=== PATIENT | male | born 1940 | race Caucasian/White ===

== ENCOUNTER 2023-02-12 10:20 | Outpatient (REF) | payer MEDICARE, SELFPAY ==
[2023-02-12 14:01] LABS: MANUAL DIFF FLAG NO
[2023-02-12 14:13] LABS: Basophils Percent Auto 0.7 % (0-2); Eosinophils Absolute Auto 0.1 X10*3/uL (0.0-0.4); Eosinophils Percent Auto 1.9 % (0-4); Hematocrit 50.3 % (42.0-52.0); Hemoglobin 16.9 g/dl (14.0-18.0); Imm Gran Abs Auto 0.01 X10*3/uL (0.00-0.03); Imm Gran Pct Auto 0.2 % (0.0-0.4); Lymphocytes Absolute Auto 1.4 X10*3/uL (1.2-4.9); Lymphocytes Percent Auto 23.9 % (20-40); Mean Corpuscular HGB Conc 33.6 g/dl (31.0-36.0); Mean Corpuscular Hemoglobin 31.5 pg (27.0-33.0); Mean Corpuscular Volume 93.7 fL (80.0-98.0); Mean Platelet Volume 10.2 fL (9.4-12.4); Monocytes Absolute Auto 0.6 X10*3/uL (0.1-1.2); Monocytes Percent Auto 9.7 % (2-11); Neutrophils Absolute Auto 3.6 x10*3/uL (2.0-8.3); Neutrophils Percent Auto 63.6 % (45-73); Platelet Count 158 X10*3/uL (160-400); Red Blood Count 5.37 X10*6/uL (4.60-5.80); White Blood Count 5.7 X10*3/uL (4.8-10.8)
[2023-02-12 14:20] LABS: Appearance Urine Clear; Color Urine Yellow; Glucose Urine UA Negative (Negative); Leukocyte Esterase Urine Negative (Negative); Nitrite Urine Negative (Negative); PH 5.5 (5.0-9.0); Specific Gravity - Urine 1.025 (1.005-1.025); Urine Blood Negative (Negative); Urine Ketones Negative (Negative); Urine Protein Negative (Neg-Trace)
[2023-02-12 14:32] LABS: Alanine Aminotransferase 12 U/L (0-40); Albumin Level 3.6 g/dL (3.5-5.0); Alkaline Phosphatase 88 U/L (39-117); Anion Gap 11 (12-20); Aspartate Amino Transferase 19 U/L (5-37); Blood Urea Nitrogen 21 mg/dL (9-16); Calcium 9.2 mg/dL (8.4-10.2); Carbon Dioxide 24 mmol/L (22-29); Chloride 108 mmol/L (96-108); Cholesterol 148 mg/dL; Estimated Glomerular Filt Rate > 60; Glucose Fasting 92 mg/dL (60-99); HDL Cholesterol 40 mg/dL; LDL Cholesterol Calculated 96 mg/dl; Potassium 4.2 mmol/L (3.3-5.1); Sodium 139 mmol/L (135-145); Total Protein 6.3 g/dL (6.5-8.0); Triglycerides 64 mg/dL
[2023-02-12 14:37] LABS: TSH reflex Free T4 0.93 uIU/mL (0.32-4.0)
[2023-02-12 14:57] LABS: Prostate Specific Antigen Scr < 0.10 ng/mL (<0.05-4.0)
[2023-02-12 15:06] LABS: Creatinine Urine 116.97 mg/dL; Microalbum/Creatinine Ratio Ur 7.6 ug/mg cr
== END 2023-02-12 10:21 | disposition home or self-care (01) ==
LOC: HO.WFDLDS 10:20
PROVIDERS: Visit Provider Family Medicine
DX: Z00.00 Encounter for general adult medical examination without abnormal findings (principal); I10 Essential (primary) hypertension; Z12.5 Encounter for screening for malignant neoplasm of prostate
CPT/HCPCS: 36415; 80053; 80061; 81003; 82043; 84153; 84443; 85025

== ENCOUNTER 2023-04-01 10:51 | Outpatient (AMB) | payer MEDICARE, SELFPAY ==
--- NOTE | 2023-04-01 11:00 | A.OFFPC_ITS ---
Vital Signs 04/01/23 11:01 Height 6 ft Weight 186 lb BMI 25.2 BP 120/72 Blood Pressure Location Lt brachial Position Sitting Pulse 58 Pulse Source Pulse Oximeter Pulse Oximetry (%) 97 Oxygen Delivery Method Room Air Intake Visit Reasons: f/u irreg rhythm stable, labs, health maint Intake Note: Patient is here for follow up on irregular rythm, labs, and health maintenance. Allergies No Known Allergies Allergy (Verified 04/01/23 11:02) Tobacco use date assessed: 04/01/23 Fall risk assessment: No Falls in past year Last assessed Fall Risk: 04/01/23 Dental Screening Dental Screen Date: 04/01/23 Did you have a dental visit in the last 12 months?: No Did you have a dental problem in the last 6 months where you did not have access to dental care?: No Was dental information given to patient?: No HPI f/u irreg rhythm stable, labs, health maint HPI Details 83 y/o male presents to f/u irregular rhythm, labs and health maintenance. He denies any dizzines/weakness/chest pain. He denies any significant changes. Labs were drawn 02/12/23. Reviewed labs with pt. Triglycerides 64. TC 148. LDL 96. HDL 40. Pt reports he plays basketball and reports he feels changes to his knees. [facility] Medical History (Updated 04/01/23 @ 11:33 by Js Spencer) Prostate cancer Surgical History (Updated 04/01/23 @ 11:05 by Giselle Holt CMA) History of back surgery Social History (Updated 11/06/22 @ 12:08 by Giselle Holt CMA) Household Members: Significant Other Housing: House Are you a primary ostomy care nurse to a significant other at home: No Do you presently have visiting nurse or other home services: No 75 years or older and lives alone: No Alcohol intake: never Patient Tobacco Use Status: Former Tobacco user Years Smoked: quit smoking in 1971 e-Cigarette/Vaping Use: Never Used service: Yes Current occupational status: employed Current occupation: [employer]. Cognitive needs: No Hearing needs: No Vision needs: No Review of Systems Const Denies chills, Denies fatigue, Denies fever(s), Denies headache(s) and Denies weakness ENT Denies dizziness and Denies headache(s) Card Denies chest pain, Denies lightheadedness, Denies dyspnea and Denies other (Palpitations) Resp Denies cough, Denies dyspnea, Denies wheezing and Denies other ( shortness of breath) Musc Denies numbness and Denies tingling Neuro Denies dizziness, Denies headache(s), Denies numbness, Denies tingling, Denies paresthesias and Denies weakness Psych Denies anxiety and Denies depression Endo Denies fatigue Aller/Immun Denies wheezing Physical exam (Primary Care) Vital Signs: Last Vital Signs Pulse 58 04/01/23 11:01 BP 120/72 04/01/23 11:01 Pulse Ox 97 04/01/23 11:01 Oxygen Delivery Method Room Air 04/01/23 11:01 BMI result Body Mass Index 25.2 Tobacco/Smoking Status: Tobacco use Status Tobacco use date assessed 04/01/23 04/01/23 11:05 Patient Tobacco Use Status Former Tobacco user 04/01/23 11:05 e-Cigarette/Vaping Use Never Used 04/01/23 11:05 Const General: no acute distress and well developed Nutritional Appearance: well nourished Orientation/consciousness: patient oriented x3 HENMT Head: Yes normocephalic and Yes atraumatic Eyes General: appearance normal, both eyes and all related structures Pupils: Equal, round and reactive pupils present EOM: EOMs intact bilaterally Resp Effort & Inspection: normal respiratory effort Auscultation: clear to auscultation bilaterally Cardio Rate: regular rate Rhythm: abnormal rhythm (irregular rhythm due to PACs) Heart sounds: S1 normal heart sound present, S2 normal heart sound present, no gallops, no murmurs and no rubs Skin Other: Rash on bilateral thighs and legs with mild erythema and scale Neuro General: patient oriented x3 and gait normal Cranial nerves: Yes Equal, round and reactive pupils present Psych Affect: normal affect Assessment and Plan Assessment & Plan (1) Irregular heart rhythm: Code(s): I49.9 - Cardiac arrhythmia, unspecified Plan: Patient has frequent PACs generating an irregular rhythm but has normal rate and has been stable for many years. Recent EKG did not show atrial fibrillation Stable Will continue to follow (2) Knee pain: Code(s): M25.569 - Pain in unspecified knee Plan: Bilateral knee pain which is likely osteoarthritis He has Voltaren gel at home and will use this. He can also use Tylenol. Uses naproxen regularly present but would like to wean off this and naproxen may be affecting his platelet count-see below (3) Contact dermatitis: Code(s): L25.9 - Unspecified contact dermatitis, unspecified cause Plan: Trial steroid ointment He will let me know if worsening or not improving (4) Thrombocytopenia: Code(s): D69.6 - Thrombocytopenia, unspecified Plan: Very mild thrombocytopenia. He has been taking regular NSAIDs for some low back pain. He will try to use this less frequently Will recheck platelets with his next blood draw Coding Level of Care Code Est Pt Level 4 (80084) Diagnoses Irregular heart rhythm I49.9 Knee pain M25.569 Contact dermatitis L25.9 Thrombocytopenia D69.6
[2023-04-01 11:01] VITALS: BP 120/72; PULSE 58; O2SAT 97; BMI 25.2
== END 2023-04-01 11:34 | disposition home or self-care (01) ==
PROVIDERS: PCP Family Medicine; Visit Provider Family Medicine
DX: I49.9 Cardiac arrhythmia, unspecified (principal); M25.569 Pain in unspecified knee; L25.9 Unspecified contact dermatitis, unspecified cause; D69.6 Thrombocytopenia, unspecified
CPT/HCPCS: 99214

== ENCOUNTER 2023-07-12 10:06 | Outpatient (REF) | payer MEDICARE, SELFPAY ==
[2023-07-12 11:21] LABS: MANUAL DIFF FLAG NO
[2023-07-12 11:33] LABS: Basophils Percent Auto 0.5 % (0-2); Eosinophils Absolute Auto 0.1 X10*3/uL (0.0-0.4); Eosinophils Percent Auto 0.8 % (0-4); Hematocrit 48.7 % (42.0-52.0); Hemoglobin 16.1 g/dl (14.0-18.0); Imm Gran Abs Auto 0.01 X10*3/uL (0.00-0.03); Imm Gran Pct Auto 0.1 % (0.0-0.4); Lymphocytes Absolute Auto 1.2 X10*3/uL (1.2-4.9); Mean Corpuscular HGB Conc 33.1 g/dl (31.0-36.0); Mean Corpuscular Hemoglobin 31.3 pg (27.0-33.0); Mean Corpuscular Volume 94.6 fL (80.0-98.0); Mean Platelet Volume 9.8 fL (9.4-12.4); Monocytes Absolute Auto 0.5 X10*3/uL (0.1-1.2); Monocytes Percent Auto 6.9 % (2-11); Neutrophils Absolute Auto 5.8 x10*3/uL (2.0-8.3); Neutrophils Percent Auto 75.7 % (45-73); Platelet Count 154 X10*3/uL (160-400); Red Blood Count 5.15 X10*6/uL (4.60-5.80); Red Cell Distribution Width 13.2 % (11.0-16.0); White Blood Count 7.6 X10*3/uL (4.8-10.8)
[2023-07-12 12:02] LABS: Alanine Aminotransferase 13 U/L (0-40); Albumin Level 3.5 g/dL (3.5-5.0); Alkaline Phosphatase 81 U/L (39-117); Anion Gap 9 (12-20); Aspartate Amino Transferase 18 U/L (5-37); Bilirubin Total 1.4 mg/dL (0.0-1.0); Blood Urea Nitrogen 18 mg/dL (9-16); Calcium 8.5 mg/dL (8.4-10.2); Carbon Dioxide 27 mmol/L (22-29); Chloride 107 mmol/L (96-108); Estimated Glomerular Filt Rate > 60; Glucose Random 89 mg/dL (60-115); Potassium 4.1 mmol/L (3.3-5.1); Sodium 139 mmol/L (135-145); Total Protein 6.2 g/dL (6.5-8.0)
== END 2023-07-12 10:07 | disposition home or self-care (01) ==
LOC: HO.WFDLDS 10:06
PROVIDERS: Visit Provider Family Medicine
DX: Z00.00 Encounter for general adult medical examination without abnormal findings (principal); D69.6 Thrombocytopenia, unspecified; I49.9 Cardiac arrhythmia, unspecified
CPT/HCPCS: 36415; 80053; 85025

== ENCOUNTER 2023-07-20 10:48 | Outpatient (AMB) | payer MEDICARE, SELFPAY ==
[2023-07-20 11:02] VITALS: BP 120/72; PULSE 74; RESP 13; O2SAT 96; BMI 24.8
--- NOTE | 2023-07-20 11:02 | MHC.PC.OV ---
Vital Signs 07/20/23 11:02 Height 6 ft Weight 183 lb 2 oz BMI 24.8 BP 120/72 Blood Pressure Location Lt brachial Position Sitting Respiration 13 Pulse 74 Pulse Source Pulse Oximeter Pulse Oximetry (%) 96 Oxygen Delivery Method Room Air Intake Visit Reasons: f/u irregular rhythm and thrombocytopenia Intake Note: Patient is here for a follow up for irregular rhythm and thrombocytopenia. Patient is accompanied by spouse who shares concern for patients recent weightloss. Manager Procurement Required: No Accompanied by: Spouse Allergies No Known Allergies Allergy (Verified 07/20/23 11:09) Tobacco use date assessed: 04/01/23 HPI f/u irregular rhythm and thrombocytopenia HPI Details 83 y/o male presents to f/u irregular rhythm and mild thrombocytopenia. Labs were drawn 07/12/23. Reviewed labs with pt. Ongoing mild thrombocytopenia - stable. Protein mildly low. They note he has been coughing - pt states he occasionally feels a tickle in his throat. [facility] Medical History (Updated 07/20/23 @ 11:39 by Js Spencer) Prostate cancer Surgical History (Updated 04/01/23 @ 11:05 by Giselle Holt [facility]) History of back surgery Social History (Updated 11/06/22 @ 12:08 by Giselle Holt CMA) Household Members: Significant Other Housing: House Are you a primary associate director career services to a significant other at home: No Do you presently have visiting nurse or other home services: No Alcohol intake: never Patient Tobacco Use Status: Former Tobacco user Years Smoked: quit smoking in 1971 e-Cigarette/Vaping Use: Never Used service: Yes Current occupational status: employed Current occupation: [employer]. Cognitive needs: No Hearing needs: No Vision needs: No Review of Systems Const Denies chills, Denies fatigue, Denies fever(s), Denies headache(s) and Denies weakness ENT Denies dizziness and Denies headache(s) Card Denies chest pain, Denies lightheadedness, Denies dyspnea and Denies other (Palpitations) Resp Reports cough, Denies dyspnea, Denies wheezing and Denies other ( shortness of breath) Musc Denies numbness and Denies tingling Neuro Denies dizziness, Denies headache(s), Denies numbness, Denies tingling, Denies paresthesias and Denies weakness Psych Denies anxiety and Denies depression Endo Denies fatigue Aller/Immun Denies wheezing Physical exam (Primary Care) Vital Signs: Last Vital Signs Pulse 74 07/20/23 11:02 Resp 13 07/20/23 11:02 BP 120/72 07/20/23 11:02 Pulse Ox 96 07/20/23 11:02 Oxygen Delivery Method Room Air 07/20/23 11:02 BMI result Body Mass Index 24.8 Tobacco/Smoking Status: Tobacco use Status Tobacco use date assessed 04/01/23 07/20/23 11:10 Patient Tobacco Use Status Former Tobacco user 07/20/23 11:10 e-Cigarette/Vaping Use Never Used 07/20/23 11:10 Const General: no acute distress and well developed Nutritional Appearance: well nourished Orientation/consciousness: patient oriented x3 HENMT Head: Yes normocephalic and Yes atraumatic Eyes General: appearance normal, both eyes and all related structures Pupils: Equal, round and reactive pupils present EOM: EOMs intact bilaterally Resp Effort & Inspection: normal respiratory effort Auscultation: clear to auscultation bilaterally Cardio Rate: regular rate Rhythm: abnormal rhythm Heart sounds: S1 normal heart sound present, S2 normal heart sound present, no gallops, no murmurs and no rubs Neuro General: patient oriented x3 and gait normal Cranial nerves: Yes Equal, round and reactive pupils present Psych Affect: normal affect Assessment and Plan Assessment & Plan (1) Irregular heart rhythm: Code(s): I49.9 - Cardiac arrhythmia, unspecified Plan: No?change?with?rhythm.??Frequent?PACs/premature?beats. Regular?rate?and?patient?has?no?symptoms. (2) Thrombocytopenia: Code(s): D69.6 - Thrombocytopenia, unspecified Plan: Mild?and?steady We?can?follow?this?periodically (3) Cough: Code(s): R05.9 - Cough, unspecified Plan: Patient?notes?mild?throat?irritation.??No?swallowing?difficulties.??No?expect?duration. Feels?well Advised?trial?of?Zyrtec?and?humidified?air. Plan Patient's?spouse?had?concerns?regarding?weight?loss. Patient?feels?well. Weight?is?within?normal?range We?can?continue?to?watch?this.??If?continues?decreasing,?would?evaluate?further. Orders: Orders Lipid Panel Today Z00.00 - Encounter for general adult medical examination without abnormal findings Microalbumin, Random (w Creat) 1 Week I10 - Essential (primary) hypertension TSH reflex Free T4 Today Z00.00 - Encounter for general adult medical examination without abnormal findings Comprehensive [place]. Panel Fast Today Z00.00 - Encounter for general adult medical examination without abnormal findings Complete Blood Count Auto Diff Today Z00.00 - Encounter for general adult medical examination without abnormal findings UA and rflx microscopic Today Z00.00 - Encounter for general adult medical examination without abnormal findings Prostate Specific Antigen Scr Today Z12.5 - Encounter for screening for malignant neoplasm of prostate Coding Level of Care Code Est Pt Level 3 (31853) Diagnoses Irregular heart rhythm I49.9 Thrombocytopenia D69.6 Cough R05.9
== END 2023-07-20 11:48 | disposition home or self-care (01) ==
PROVIDERS: PCP Family Medicine; Visit Provider Family Medicine
DX: I49.9 Cardiac arrhythmia, unspecified (principal); D69.6 Thrombocytopenia, unspecified; R05.9 Cough, unspecified
CPT/HCPCS: 99213

== ENCOUNTER 2023-07-20 10:52 | Outpatient (REF) | payer MEDICARE, SELFPAY ==
[2023-07-20 15:17] LABS: Creatinine Urine 30.93 mg/dL; Microalbum/Creatinine Ratio Ur 25.8 ug/mg cr (<30)
== END 2023-07-20 10:53 | disposition home or self-care (01) ==
LOC: HO.WFDLNP 10:52
PROVIDERS: Visit Provider Family Medicine
DX: I10 Essential (primary) hypertension (principal); I49.9 Cardiac arrhythmia, unspecified
CPT/HCPCS: 82043; 82570

== ENCOUNTER 2023-11-02 09:51 | Outpatient (REF) | payer MEDICARE, SELFPAY ==
[2023-11-02 11:19] LABS: MANUAL DIFF FLAG NO
[2023-11-02 11:26] LABS: Appearance Urine Clear; Color Urine Yellow; Glucose Urine UA Negative (Negative); Leukocyte Esterase Urine Negative (Negative); Nitrite Urine Negative (Negative); PH 5.5 (5.0-9.0); Specific Gravity - Urine 1.025 (1.005-1.025); Urine Blood Negative (Negative); Urine Ketones Negative (Negative); Urine Protein Negative (Neg-Trace)
[2023-11-02 11:33] LABS: Basophils Percent Auto 0.6 % (0-2); Eosinophils Absolute Auto 0.1 X10*3/uL (0.0-0.4); Hematocrit 50.2 % (42.0-52.0); Hemoglobin 16.8 g/dl (14.0-18.0); Imm Gran Abs Auto 0.01 X10*3/uL (0.00-0.03); Imm Gran Pct Auto 0.2 % (0.0-0.4); Lymphocytes Absolute Auto 1.2 X10*3/uL (1.2-4.9); Lymphocytes Percent Auto 18.1 % (20-40); Mean Corpuscular HGB Conc 33.5 g/dl (31.0-36.0); Mean Corpuscular Volume 95.6 fL (80.0-98.0); Monocytes Absolute Auto 0.5 X10*3/uL (0.1-1.2); Monocytes Percent Auto 8.3 % (2-11); Neutrophils Absolute Auto 4.5 x10*3/uL (2.0-8.3); Neutrophils Percent Auto 70.8 % (45-73); Platelet Count 157 X10*3/uL (160-400); Red Blood Count 5.25 X10*6/uL (4.60-5.80); Red Cell Distribution Width 13.4 % (11.0-16.0); White Blood Count 6.4 X10*3/uL (4.8-10.8)
[2023-11-02 12:35] LABS: Creatinine Urine 113.31 mg/dL; Microalbum/Creatinine Ratio Ur 7.9 ug/mg cr (<30)
[2023-11-02 12:35] LABS: Prostate Specific Antigen Scr < 0.10 ng/mL (<0.05-4.0)
[2023-11-02 12:39] LABS: Alanine Aminotransferase 12 U/L (0-40); Albumin Level 3.6 g/dL (3.5-5.0); Alkaline Phosphatase 92 U/L (39-117); Anion Gap 10 (12-20); Aspartate Amino Transferase 16 U/L (5-37); Blood Urea Nitrogen 25 mg/dL (9-16); Carbon Dioxide 30 mmol/L (22-29); Chloride 108 mmol/L (96-108); Cholesterol 153 mg/dL (<200); Estimated Glomerular Filt Rate > 60; Glucose Fasting 97 mg/dL (60-99); HDL Cholesterol 49 mg/dL (>40); LDL Cholesterol Calculated 96 mg/dL (<100); Sodium 143 mmol/L (135-145); TSH reflex Free T4 1.32 uIU/mL (0.32-4.0); Total Protein 6.5 g/dL (6.5-8.0); Triglycerides 43 mg/dL (<150)
== END 2023-11-02 09:52 | disposition home or self-care (01) ==
LOC: HO.WFDLDS 09:51
PROVIDERS: Visit Provider Family Medicine
DX: Z00.00 Encounter for general adult medical examination without abnormal findings (principal); Z12.5 Encounter for screening for malignant neoplasm of prostate; I10 Essential (primary) hypertension
CPT/HCPCS: 36415; 80053; 80061; 81003; 82043; 82570; 84153; 84443; 85025

== ENCOUNTER 2023-11-17 10:57 | Outpatient (AMB) | payer MEDICARE, SELFPAY ==
[2023-11-17 11:02] VITALS: BP 122/66; PULSE 70; O2SAT 99; BMI 24.7
--- NOTE | 2023-11-17 11:02 | A.OFFPC_ITS ---
Vital Signs 11/17/23 11:02 Height 6 ft Weight 182 lb 8 oz BMI 24.7 BP 122/66 Blood Pressure Location Lt brachial Position Sitting Pulse 70 Pulse Source Pulse Oximeter Pulse Oximetry (%) 99 Oxygen Delivery Method Room Air Intake Visit Reasons: Extended exam with f/u labs and health maintenance Intake Note: Patient is here for extended exam and follow up on labs with health maintenance. Allergies No Known Allergies Allergy (Verified 11/17/23 11:04) Medication List - Last Reconciled 11/17/23 by Quentin Levi MD diclofenac sodium 1% (Voltaren Arthritis Pain) 2 grams topical QID naproxen 500 mg PO BID Tobacco use date assessed: 11/17/23 Fall risk assessment: No Falls in past year Last assessed Fall Risk: 11/17/23 Dental Screening Dental Screen Date: 11/17/23 Did you have a dental visit in the last 12 months?: Yes Did you have a dental problem in the last 6 months where you did not have access to dental care?: No Was dental information given to patient?: Patient declined HPI Extended exam with f/u labs and health maintenance HPI Details 83 y/o male presents for an extended exa m with f/u labs. Labs were drawn 11/02/23. Reviewed labs with pt. Mild thrombocytopenia. Triglycerides 43. TC 153. LDL 96. HDL 49. Pt reports intermittent coughs. PFSH Medical History Prostate cancer Surgical History History of back surgery Social History Household Members: Significant Other Housing: House Are you a primary care management associate to a significant other at home: No Do you presently have visiting nurse or other home services: No 75 years or older and lives alone: No Alcohol intake: never Patient Tobacco Use Status: Former Tobacco user Years Smoked: quit smoking in 1971 e-Cigarette/Vaping Use: Never Used service: Yes Current occupational status: employed Current occupation: [employer]. Cognitive needs: No Hearing needs: No Vision needs: No Questionnaire PHQ-9 Over the last 2 weeks, how often have you been bothered by any of the following problems? 1. Little interest or pleasure in doing things: not at all 2. Feeling down, depressed, or hopeless: not at all 3. Trouble falling or staying asleep, or sleeping too much: not at all 4. Feeling tired or having little energy: not at all 5. Poor appetite or overeating: not at all 6. Feeling bad about yourself - or that you are a failure or have let yourself or your family down: not at all 7. Trouble concentrating on things, such as reading the newspaper or watching television: not at all 8. Moving or speaking so slowly that other people could have noticed. Or the opposite - being so fidgety or restless that you have been moving around a lot more than usual: not at all 9. Thoughts that you would be better off or of hurting yourself in some way: not at all Total score: 0 Depression Screening Interpretation: Negative Depression Screening Done: Yes 70504 - PHQ-9 Billing: Yes Source: Developed by Drs. Dominick Moe, Leigh Ramirez, Abel Vuong and colleagues, with an educational loren from [employer]. Thrive Questionnaire Date Thrive assessed: 11/17/23 I am a: Patient What is your living situation today?: I have a steady place to live Within the past 12 months, did the food you bought not last and you didn't have the money to get more?: Never true Within the past 12 months, did you worry whether your food would run out before you got money to buy more?: Never true Do you have trouble paying for medicines?: No Do you have trouble getting transportation to medical appointments?: No Do you have trouble paying your heating and electricity bill?: No Do you have trouble taking care of your child, family member or friend?: No Do you have trouble with day-to-day activities such as bathing, preparing meals, shopping, managing finances, etc.?: No Are you currently unemployed and looking for a job?: No Are you interested in more education?: No THRIVE Score: 0 AUDIT C Alcohol Use Questionnaire (AUDIT-C) 1. How often do you have a drink containing alcohol?: Monthly or less 2. How many drinks containing alcohol do you have on a typical day when you are drinking?: 1 or 2 3. How often do you have six or more drinks on one occasion?: Never Total Score: 1 FAIZAN-7 AMB Questionnaire FAIZAN-7 Date FAIZAN - 7 assessed: 11/17/23 Feeling nervous, anxious, or on edge: 0 = Not at all Not being able to stop or control worryin = Not at all Worrying too much about different things: 0 = Not at all Trouble relaxin = Not at all Being so restless that it is hard to sit still: 0 = Not at all Becoming easily annoyed or irritable: 0 = Not at all Feeling afraid as if something awful might happen: 0 = Not at all Total FAIZAN-7 score (0-4 normal; 5-9 mild; 10-14 moderate; 15-21 severe): 0 Source: Developed by Drs. Dominick Moe, Leigh Ramirez, Abel Vuong and colleagues, with an educational loren from [employer]. FAIZAN-7 Assessment Billing FAIZAN-7 Assessment Tool: FAIZAN-7 Assessment 26243 Review of Systems Const Denies chills, Denies fatigue, Denies fever(s), Denies headache(s) and Denies weakness Eyes Denies change in vision ENT Denies dizziness, Denies headache(s), Denies hearing loss, Denies nasal congestion, Denies sinus pain, Denies sinus pressure and Denies sore throat Card Denies chest pain, Denies lightheadedness, Denies dyspnea and Denies other (palpitations) Resp Denies cough, Denies dyspnea and Denies wheezing GI Denies abdominal pain, Denies melena, Denies hematochezia, Denies change in bowel habits, Denies dyspepsia and Denies nausea Denies hematuria and Denies dysuria Musc Denies abnormal gait, Denies myalgias, Denies arthralgias, Denies numbness and Denies tingling Skin/Breast Denies rash, Denies unusual bruising and Denies wounds Neuro Denies abnormal gait, Denies dizziness, Denies headache(s), Denies memory loss, Denies numbness, Denies Sensory deficit (Neuro), Denies tingling and Denies weakness Psych Denies anxiety, Denies depression and Denies memory loss Endo Denies cold intolerance, Denies fatigue, Denies heat intolerance, Denies polydipsia and Denies polyuria Dominguez/Lymph Denies easy bleeding and Denies easy bruising Aller/Immun Denies wheezing Physical exam (Primary Care) Vital Signs: Last Vital Signs Pulse 70 11/17/23 11:02 BP 122/66 11/17/23 11:02 Pulse Ox 99 11/17/23 11:02 Oxygen Delivery Method Room Air 11/17/23 11:02 BMI result Body Mass Index 24.7 Tobacco/Smoking Status: Tobacco use Status Tobacco use date assessed 11/17/23 11/17/23 11:08 Patient Tobacco Use Status Former Tobacco user 11/17/23 11:08 e-Cigarette/Vaping Use Never Used 11/17/23 11:08 PHQ-9: PHQ-9 Score PHQ-9: Total score 0 11/17/23 11:40 Depression Screening Interpretation: Negative Thrive Assessment: Date of Thrive Assessment Date Thrive assessed 11/17/23 11/17/23 11:08 Const General: no acute distress, well developed, alert and awake Nutritional Appearance: well nourished Orientation/consciousness: patient oriented x3 HENMT Head: Yes normocephalic and Yes atraumatic Ears: hearing grossly normal bilaterally and TM's normal bilaterally General nose exam: Normal external nose present and Normal nares present Mouth: Normal oral and palatal mucosa present and moist mucous membranes Teeth and gingiva: dentition normal Throat: Yes posterior oropharynx normal Eyes General: appearance normal, both eyes and all related structures Pupils: Equal, round and reactive pupils present and Pupil accommodation reflex normal EOM: EOMs intact bilaterally Neck Neck: Yes normal visual inspection, Yes no lymphadenopathy and Yes trachea midline Thyroid: Thyroid normal Carotids: no bruits Lymphatic: no lymphadenopathy noted Chest Chest palpation & inspection: normal inspection of the chest Resp Effort & Inspection: normal respiratory effort Auscultation: clear to auscultation bilaterally Cardio Rate: regular rate Rhythm: abnormal rhythm Heart sounds: S1 normal heart sound present, S2 normal heart sound present, no gallops, no murmurs and no rubs Bruits: no abdominal aortic bruits and no carotid bruits GI Palpation (GI): No Abdominal aortic bruit present, Soft to palpation, nontender, No hepatosplenomegaly present and No Rebound tenderness present Auscultation: normal bowel sounds General: Yes no CVA tenderness Back/Spine/Pelvis Back: no CVA tenderness Cervical Spine: cervical ROM normal and No Cervical spine tenderness Thoracic/Lumbar Spine: thoraco-lumbar ROM normal, No pain with thoraco-lumbar ROM, No thoracic spinal tenderness and No lumbar spinal tenderness Skin Lesions: no lesions Rashes: no rashes Trauma: no lacerations or abrasions Wounds: no wounds Nails: normal Neuro General: patient oriented x3 Cranial nerves: Yes Equal, round and reactive pupils present Cognition (Neuro): normal cognition Gait exam (Neuro): Normal gait present Motor exam (neuro): 5/5 motor strength present throughout Sensory Exam: No Sensory deficit (Neuro) Deep tendon reflexes (DTR's): Right patellar reflex intensity grade: 2+ and Left patellar reflex intensity grade: 2+ Extrem General: Yes normal to inspection and No edema Psych Appearance: grossly normal Affect: normal affect Attitude: cooperative Thought process: Normal thought process present Immunizations Boostrix Tdap 2.5 Lf unit-8 mcg-5 Lf/0.5 mL intramuscular syringe Performing Provider: Quentin Levi MD Performing Location: [facility] Administered by: Nasra Ma RN on 11/17/23 11:41 Dose Route Admin Location Dispensed Lot Number Expiration Date NDC [employer] 0.5 mL IM Left Deltoid 0.5 mL [id number] 12/18/25 04291-259-62 [employer] VIS Given Date VIS Provided VIS Publication Date 11/17/23 Single Vaccine 21 Eligibility Eligibility Date Funding Source Not [facility] Eligible 11/17/23 Private Assessment and Plan Assessment & Plan (1) Thrombocytopenia: Code(s): D69.6 - Thrombocytopenia, unspecified Plan: Mild,?stable (2) Irregular heart rhythm: Code(s): I49.9 - Cardiac arrhythmia, unspecified Plan: Stable.??Patient?has?declined?intervention Asymptomatic (3) Cough: Code(s): R05.9 - Cough, unspecified Plan: Mild?cough?which?he?notices?when?he?swallows?food?wrong - denies?any?aspiration. Says?this?only?occurs?rarely Take?smaller?bites?of?food,?drink?plenty?of?water?with?meals?and?chew?food?well If?still?having?problems?he?can?let?me?know - would?consider?MBS (4) Immunization counseling: Code(s): Z71.85 - Encounter for immunization safety counseling Plan: Due?for?Tdap-ordered.??He?will?receive?this?today Also?has?not?had?shingles?shot?and?I?recommended?this (5) History of prostate cancer: Code(s): Z85.46 - Personal history of malignant neoplasm of prostate Plan: PSA?is?less?than?0.10 Will?continue?annual?screen (6) Lumbar radiculopathy: Code(s): M54.16 - Radiculopathy, lumbar region Plan: MRI?showed?lumbar?stenosis?and?he?is?followed?by?[facility].??They? have?g iven?him?injection?therapy?which?improved?things.??Started?some?physical?therapy ?but?this?made?things?worse. He?continues?with?diclofenac?gel?and?is?considering?further?injections?and?recon sidering?some?physical?therapy?for?his?legs. Stable.??Follow-up?with?[facility]?as?recommended (7) Adult general medical exam: Code(s): Z00.00 - Encounter for general adult medical examination without abnormal findings Plan: 83-year-old?male?presents?for?an?extended?exam Encouraged?healthy?diet?with?active?lifestyle?and?exercise?as?tolerated Orders: Orders TDaP Immunization Today Z23 - Encounter for immunization, Z71.85 - Encounter for immunization safety counseling Coding Level of Care Code Est Pt Level 4 (05475) Diagnoses Thrombocytopenia D69.6 Irregular heart rhythm I49.9 Cough R05.9 Immunization counseling Z71.85 History of prostate cancer Z85.46 Lumbar radiculopathy M54.16 Adult general medical exam Z00.00 Additional Codes FAIZAN-7 Assessment Billing - FAIZAN-7 Assessment Tool: FAIZAN-7 Assessment 80036 ([id number])
== END 2023-11-17 11:40 | disposition home or self-care (01) ==
PROVIDERS: PCP Family Medicine; Visit Provider Family Medicine
DX: D69.6 Thrombocytopenia, unspecified (principal); I49.9 Cardiac arrhythmia, unspecified; R05.9 Cough, unspecified; Z71.85 Encounter for immunization safety counseling; Z85.46 Personal history of malignant neoplasm of prostate; M54.16 Radiculopathy, lumbar region; Z00.00 Encounter for general adult medical examination without abnormal findings; Z23 Encounter for immunization
CPT/HCPCS: 90471; 90715; 99214

== ENCOUNTER 2024-06-23 10:28 | Outpatient (AMB) | payer MEDICARE, SELFPAY ==
--- NOTE | 2024-06-23 10:40 | A.OFFPC_ITS ---
Vital Signs 06/23/24 10:42 Height 6 ft Weight 180 lb BMI 24.4 BP 110/58 L Blood Pressure Location Lt brachial Position Sitting Respiration 14 Pulse 61 Pulse Source Pulse Oximeter Temp 97.8 F Temp Source Oral Pulse Oximetry (%) 97 Oxygen Delivery Method Room Air Intake Visit Reasons: 6m f/u chronic conditions Intake Note: 6 month follow up for chronic conditions Allergies No Known Allergies Allergy (Verified 06/23/24 10:41) Medication List - Last Reconciled 06/23/24 by Quentin Levi MD diclofenac sodium 1% (Voltaren Arthritis Pain) 2 grams topical QID naproxen 500 mg PO BID Tobacco use date assessed: 11/17/23 Dental Screening Dental Screen Date: 11/17/23 HPI 6m f/u chronic conditions HPI Details 84 y/o male presents to f[facility]u [facility]. Notes he had a recent procedure but we do not see any notes from this yet. He states he had a radiofrequency ablation. Reports ongoing knee pain/back pain. Continues to be followed by [facility]. Notes unsteadiness and does have a cane. Denies any dyspnea. States cough has resolved. [facility] Medical History Prostate cancer Surgical History History of back surgery Social History Household Members: Significant Other Housing: House Are you a primary administrator health care facility to a significant other at home: No Do you presently have visiting nurse or other home services: No 75 years or older and lives alone: No Alcohol intake: never Patient Tobacco Use Status: Former Tobacco user Years Smoked: quit smoking in 1971 e-Cigarette/Vaping Use: Never Used service: Yes Current occupational status: employed Current occupation: [employer]. Cognitive needs: No Hearing needs: No Vision needs: No Questionnaire Thrive Questionnaire Date Thrive assessed: 11/17/23 FAIZAN-7 AMB Questionnaire FAIZAN-7 Date FAIZAN - 7 assessed: 11/17/23 Source: Developed by Drs. Dominick Moe, Leigh Ramirez, Abel Vuong and colleagues, with an educational loren from [employer]. Review of Systems Const Denies chills, Denies fatigue, Denies fever(s), Denies headache(s) and Denies weakness ENT Denies dizziness and Denies headache(s) Card Denies chest pain, Denies lightheadedness, Denies dyspnea and Denies other (Palpitations) Resp Denies cough, Denies dyspnea, Denies wheezing and Denies other ( shortness of breath) Musc Denies numbness and Denies tingling Neuro Denies dizziness, Denies headache(s), Denies numbness, Denies tingling, Denies paresthesias and Denies weakness Psych Denies anxiety and Denies depression Endo Denies fatigue Aller/Immun Denies wheezing Physical exam (Primary Care) Vital Signs: Last Vital Signs Temp 97.8 F 06/23/24 10:42 Pulse 61 06/23/24 10:42 Resp 14 06/23/24 10:42 BP 110/58 L 06/23/24 10:42 Pulse Ox 97 06/23/24 10:42 Oxygen Delivery Method Room Air 06/23/24 10:42 BMI result Body Mass Index 24.4 Tobacco/Smoking Status: Tobacco use Status Tobacco use date assessed 11/17/23 06/23/24 10:40 Patient Tobacco Use Status Former Tobacco user 06/23/24 10:40 e-Cigarette/Vaping Use Never Used 06/23/24 10:40 Thrive Assessment: Date of Thrive Assessment Date Thrive assessed 11/17/23 06/23/24 10:40 Const General: no acute distress and well developed Nutritional Appearance: well nourished Orientation/consciousness: patient oriented x3 [facility] Head: Yes normocephalic and Yes atraumatic Eyes General: appearance normal, both eyes and all related structures Pupils: Equal, round and reactive pupils present EOM: EOMs intact bilaterally Resp Effort & Inspection: normal respiratory effort Auscultation: clear to auscultation bilaterally Cardio Rate: regular rate Rhythm: regular rhythm Heart sounds: S1 normal heart sound present, S2 normal heart sound present, no gallops, no murmurs and no rubs Neuro General: patient oriented x3 and gait normal Cranial nerves: Yes Equal, round and reactive pupils present Psych Affect: normal affect Coding Level of Care Code Est Pt Level 4 (65075) Diagnoses Knee pain M25.569 Irregular heart rhythm I49.9 Back pain M54.9 Unsteady gait R26.81 Assessment & Plan Assessment & Plan (1) Knee pain: Code(s): M25.569 - Pain in unspecified knee Category: Medical Plan: Bilateral?knee?osteoarthritis Also?may?have?some?referred?pain?from?spinal?stenosis?an d?has?had?radiofrequency?ablations Continue?knee?braces?as?needed He?will?let?me?know?if?he?wants?a?referral?to?Ortho?for?consideration?of?gel?inj ections?or?other?treatments. (2) Irregular heart rhythm: Code(s): I49.9 - Cardiac arrhythmia, unspecified Category: Medical Plan: Stable (3) Back pain: Code(s): M54.9 - Dorsalgia, unspecified Category: Medical Plan: History?of?spinal?stenosis Followed?by[facility]and?had?recent?radiofrequency?ablation Continue?follow-up?with[facility] (4) Unsteady gait: Code(s): R26.81 - Unsteadiness on feet Category: Medical Plan: Had?a?discussion?with?patient?regarding?unsteady?gait?due?to?spinal?stenosis?and ?bilateral?knee?osteoarthritis?and?pain He?has?a?cane?but?has?not?been?using?this Recommended?that?he?use?cane?and?carry?it?with?him.??Patient?agrees Orders: Orders Comprehensive [place]. Panel Fast Today Z00.00 - Encounter for general adult medical examination without abnormal findings Lipid Panel Today Z00.00 - Encounter for general adult medical examination without abnormal findings Prostate Specific Antigen Scr Today Z12.5 - Encounter for screening for malignant neoplasm of prostate TSH reflex Free T4 Today Z00.00 - Encounter for general adult medical examination without abnormal findings Complete Blood Count Auto Diff Today Z00.00 - Encounter for general adult medical examination without abnormal findings Microalbumin, Random (w Creat) Today I10 - Essential (primary) hypertension UA and rflx microscopic Today Z00.00 - Encounter for general adult medical examination without abnormal findings
[2024-06-23 10:42] VITALS: BP 110/58; PULSE 61; RESP 14; TEMP 36.6; O2SAT 97; BMI 24.4
== END 2024-06-23 11:15 | disposition home or self-care (01) ==
PROVIDERS: PCP Family Medicine; Visit Provider Family Medicine
DX: M25.569 Pain in unspecified knee (principal); I49.9 Cardiac arrhythmia, unspecified; M54.9 Dorsalgia, unspecified; R26.81 Unsteadiness on feet

== ENCOUNTER → 2024-06-23 10:28 | Outpatient (BNVA) | payer MEDICARE, SELFPAY | PROVIDERS: PCP Family Medicine; Visit Provider Family Medicine | DX: I49.9 Cardiac arrhythmia, unspecified (principal); M54.9 Dorsalgia, unspecified; M17.0 Bilateral primary osteoarthritis of knee | CPT/HCPCS: 99212 ==

== ENCOUNTER 2025-01-25 15:18 | Outpatient (AMB) | payer MEDICARE, SELFPAY ==
--- NOTE | 2025-01-25 15:42 | A.OFFPC_ITS ---
Vital Signs 01/25/25 15:54 Height 6 ft Weight 174 lb 4 oz BMI 23.6 BP 134/60 Blood Pressure Location Rt brachial Position Sitting Respiration 16 Pulse 53 Pulse Source Pulse Oximeter Temp 97.7 F Temp Source Oral Pulse Oximetry (%) 97 Oxygen Delivery Method Room Air Intake Visit Reasons: afib Intake Note: patient is here for ed follow up Guide Excursion Required: No Allergies No Known Allergies Allergy (Verified 01/25/25 15:49) Medication List - Last Reconciled 01/25/25 by Quentin Levi MD cyanocobalamin (vitamin B-12) 1,000 mcg PO DAILY diclofenac sodium 1% (Voltaren Arthritis Pain) 2 grams topical QID naproxen 500 mg PO BID Tobacco use date assessed: 11/17/23 Dental Screening Dental Screen Date: 11/17/23 HPI afib HPI Details 84 y/o male presents to / hospital dis charge visit for altered mental status. Admid date 01/18/25, same day disch date. Pt's speech had been slurred and was stuttering at work, and pt had no recollection this occured. He had remembered waking up at 4AM to get ready for work and leaving for work but pt had woken up from a nap around 10:30 AM and realized he was going to be late for work. Electrocradiogram showed AFib with PVCs, bifascicular block (RBBB, L anterior fascicular block). No STEMI. MRI showed no acute intracranial hemorrhage. 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 TCM TCM Information Date of Discharge 01/18/25 Discharged From Other ([facility] [place] Interactive Contact Date (Reference documentation from this date) 01/25/25 [facility]LY [facility] Medical History Prostate cancer Surgical History History of back surgery Social History Household Members: Significant Other Housing: House Are you a primary career consultant to a significant other at home: No Do you presently have visiting nurse or other home services: No 75 years or older and lives alone: No Alcohol intake: never Patient Tobacco Use Status: Former Tobacco user Years Smoked: quit smoking in 1971 e-Cigarette/Vaping Use: Never Used service: Yes Current occupational status: employed Current occupation: [employer]. Cognitive needs: No Hearing needs: No Vision needs: No Questionnaire Thrive Questionnaire Date Thrive assessed: 11/17/23 FAIZAN-7 AMB Questionnaire FAIZAN-7 Date FAIZAN - 7 assessed: 11/17/23 Source: Developed by Drs. Dominick Moe, Liegh Ramirez, Abel Vuong and colleagues, with an educational loren from [employer]. Review of Systems Const Denies chills, Denies fatigue, Denies fever(s), Denies headache(s) and Denies weakness ENT Denies dizziness and Denies headache(s) Card Denies dyspnea Resp Denies cough, Denies dyspnea, Denies wheezing and Denies other (shortness of breath) Musc Denies numbness and Denies tingling Neuro Denies dizziness, Denies headache(s), Denies numbness, Denies tingling and Denies weakness Psych Denies anxiety and Denies depression Endo Denies fatigue Aller/Immun Denies wheezing Physical exam (Primary Care) Vital Signs: Last Vital Signs Temp 97.7 F 01/25/25 15:54 Pulse 53 01/25/25 15:54 Resp 16 01/25/25 15:54 BP 134/60 01/25/25 15:54 Pulse Ox 97 01/25/25 15:54 Oxygen Delivery Method Room Air 01/25/25 15:54 BMI result Body Mass Index 23.6 Tobacco/Smoking Status: Tobacco use Status Tobacco use date assessed 11/17/23 01/25/25 15:46 Patient Tobacco Use Status Former Tobacco user 01/25/25 15:46 e-Cigarette/Vaping Use Never Used 01/25/25 15:46 Thrive Assessment: Date of Thrive Assessment Date Thrive assessed 11/17/23 01/25/25 15:46 Const General: well developed; No acute distress Nutritional Appearance: well nourished Orientation/consciousness: patient oriented x3 HENMT Head: Yes normocephalic and Yes atraumatic Eyes General: appearance normal, both eyes and all related structures Pupils: Equal, round and reactive pupils present EOM: EOMs intact bilaterally Resp Effort & Inspection: normal respiratory effort Neuro General: patient oriented x3 and gait normal Cranial nerves: Yes Equal, round and reactive pupils present Psych Affect: normal affect Coding Level of Care Code Est Pt Level 5 (07176) Diagnoses Altered mental status R41.82 Afib I48.91 Parotid mass K11.8 Diastolic dysfunction I51.89 Assessment & Plan Assessment & Plan (1) Altered mental status: Code(s): R41.82 - Altered mental status, unspecified Category: Medical Plan: Patient?was?seen?at?the?ED?for?altered?mental?status. MRI?of?the?brain?did?not?show?any?acute?abnormality Echocardiogram?shows?diastolic?dysfunction?and?a?redundant?chordae?complex vs vegetation. Blood?culture?results?show?no?aerobic?or?anaerobic?growth?x5?days, x2?tubes. EKG?showed?brief?AFib?then?conversion?to?sinus?rhythm CTA?of?head?and?neck?did?not?show?any?significant?stenosis?though?it?did?show?a? parotid?mass (2) Afib: Code(s): I48.91 - Unspecified atrial fibrillation Category: Medical Plan: Concern?for?paroxysmal?atrial?fibrillation Patient?was?noted?to?be?in?AFib?when?he?presented?to?the?emergency?department Possible?TIA?or?possible?paroxysmal?atrial?fibrillation?with?RVR & Grade II diastolic?dysfunction on?echocardiogram Will?check?Holter?monitor Will?have?patient?start?aspirin Referred?to?cardiology (3) Parotid mass: Code(s): K11.8 - Other diseases of salivary glands Category: Medical Plan: Incidental?parotid?gland?mass?was?seen?on?MRI?but?not?fully?visualize Was?also?seen?on?CTA Referred?to?ENT Patient?would?like?to?start?with?an?ultrasound?for?additional?workup.??May?need? MRI?as?a better test?with?biopsy?by?ENT. (4) Diastolic dysfunction: Code(s): I51.89 - Other ill-defined heart diseases Category: Medical Plan: Referring to cardiology Plan He?will?return?in?2-3?weeks?to?follow-up altered?ment al?status?with?abnormal?heart?rhythm?and?diastolic?dysfunction. Will?also?follow-up?on?parotid?mass Orders: Orders 2 ECG holter monitor 48 hour Today I48.91 - Unspecified atrial fibrillation US soft tiss head and/or neck Today K11.8 - Other diseases of salivary glands Referrals Ear/Nose/Throat Referral K11.8 - Other diseases of salivary glands Cardiology Referral I48.91 - Unspecified atrial fibrillation, I49.9 - Cardiac arrhythmia, unspecified, I51.89 - Other ill-defined heart diseases, R41.82 - Altered mental status, unspecified Medications: New aspirin 81 mg PO DAILY 30 days 30 tabs 1RF
[2025-01-25 15:54] VITALS: BP 134/60; PULSE 53; RESP 16; TEMP 36.5; O2SAT 97; BMI 23.6
== END 2025-01-25 16:43 | disposition home or self-care (01) ==
PROVIDERS: PCP Family Medicine; Visit Provider Family Medicine
DX: R41.82 Altered mental status, unspecified (principal); I48.91 Unspecified atrial fibrillation; K11.8 Other diseases of salivary glands; I51.89 Other ill-defined heart diseases

== ENCOUNTER → 2025-01-25 15:18 | Outpatient (BNVA) | payer MEDICARE, SELFPAY | PROVIDERS: PCP Family Medicine; Visit Provider Family Medicine | DX: R41.82 Altered mental status, unspecified (principal); I48.91 Unspecified atrial fibrillation; K11.8 Other diseases of salivary glands; I51.89 Other ill-defined heart diseases | CPT/HCPCS: 99212 ==

== ENCOUNTER 2025-02-20 10:52 | Outpatient (AMB) | payer MEDICARE, SELFPAY ==
--- NOTE | 2025-02-20 11:07 | A.OFFPC_ITS ---
Vital Signs 02/20/25 11:16 Height 6 ft Weight 261 lb 6 oz BMI 35.4 BP 128/68 Blood Pressure Location Rt brachial Position Sitting Respiration 15 Pulse 58 Pulse Source Pulse Oximeter Temp 97.9 F Temp Source Temporal Artery Scan Pulse Oximetry (%) 95 Oxygen Delivery Method Room Air Intake Visit Reasons: chronic conditions Intake Note: Adolfo present in the office today for a follow up. Allergies No Known Allergies Allergy (Verified 02/20/25 11:14) Medication List - Last Reconciled 02/20/25 by Quentin Levi MD aspirin 81 mg PO DAILY 30 days cyanocobalamin (vitamin B-12) 1,000 mcg PO DAILY 90 days diclofenac sodium 1% (Voltaren Arthritis Pain) 2 grams topical QID naproxen 500 mg PO BID Tobacco use date assessed: 02/20/25 Fall risk assessment: No Falls in past year Last assessed Fall Risk: 02/20/25 Dental Screening Dental Screen Date: 02/20/25 Did you have a dental visit in the last 12 months?: No Did you have a dental problem in the last 6 months where you did not have access to dental care?: No Was dental information given to patient?: Patient declined HPI chronic conditions HPI Details 85 y/o male presents to f/u chronic [facility] itions. Ordered a holter monitor test. Referred him to Cardiology. Checking ultrasound of the parotid gland and I have referred him to ENT. May need MRI. May need biopsy. Has been feeling well since his last office visit. Has an appt. with Cardiology late April. He notes no one has contacted him yet for a holter monitor or ENT referral. [facility] Medical History Prostate cancer Surgical History History of back surgery Social History (Updated 02/20/25 @ 11:16 by Amrita Yu MA) Household Members: Significant Other Housing: House Are you a primary career guidance counselor to a significant other at home: No Do you presently have visiting nurse or other home services: No 75 years or older and lives alone: No Alcohol intake: never Patient Tobacco Use Status: Former Tobacco user Years Smoked: quit smoking in 1971 e-Cigarette/Vaping Use: Never Used Use of substances other than those prescribed or required for medical reasons: No service: Yes Current occupational status: employed Current occupation: [employer]. Cognitive needs: No Hearing needs: No Vision needs: No Questionnaire PHQ-9 Over the last 2 weeks, how often have you been bothered by any of the following problems? 1. Little interest or pleasure in doing things: not at all 2. Feeling down, depressed, or hopeless: not at all 3. Trouble falling or staying asleep, or sleeping too much: not at all 4. Feeling tired or having little energy: not at all 5. Poor appetite or overeating: not at all 6. Feeling bad about yourself - or that you are a failure or have let yourself or your family down: not at all 7. Trouble concentrating on things, such as reading the newspaper or watching television: not at all 8. Moving or speaking so slowly that other people could have noticed. Or the opposite - being so fidgety or restless that you have been moving around a lot more than usual: not at all 9. Thoughts that you would be better off or of hurting yourself in some way: not at all Total score: 0 Source: Developed by Drs. Dominick Moe, Leigh Ramirez, Abel Vuong and colleagues, with an educational loren from [employer] Thrive Questionnaire Date Thrive assessed: 02/17/25 I am a: Patient What is your living situation today?: I have a steady place to live Within the past 12 months, did the food you bought not last and you didn't have the money to get more?: Never true Within the past 12 months, did you worry whether your food would run out before you got money to buy more?: Never true Do you have trouble paying for medicines?: Yes Do you have trouble getting transportation to medical appointments?: No Do you have trouble paying your heating and electricity bill?: No Do you have trouble taking care of your child, family member or friend?: No Do you have trouble with day-to-day activities such as bathing, preparing meals, shopping, managing finances, etc.?: No Are you currently unemployed and looking for a job?: No Are you interested in more education?: No Please select the resources that you would like help with: None Currently or been in a relationship where the following occur: No concerns reported THRIVE Score: 0 AUDIT C Alcohol Use Questionnaire (AUDIT-C) 1. How often do you have a drink containing alcohol?: Never 2. How many drinks containing alcohol do you have on a typical day when you are drinking?: 1 or 2 3. How often do you have six or more drinks on one occasion?: Never Total Score: 0 FAIZAN-7 AMB Questionnaire FAIZAN-7 Date FAIZAN - 7 assessed: 11/17/23 Feeling nervous, anxious, or on edge: 0 = Not at all Not being able to stop or control worryin = Not at all Worrying too much about different things: 0 = Not at all Trouble relaxin = Not at all Being so restless that it is hard to sit still: 0 = Not at all Becoming easily annoyed or irritable: 0 = Not at all Feeling afraid as if something awful might happen: 0 = Not at all Total FAIZAN-7 score (0-4 normal; 5-9 mild; 10-14 moderate; 15-21 severe): 0 Source: Developed by Drs. Dominick Moe, Leigh Ramirez, Abel Vuong and colleagues, with an educational loren from [employer] Review of Systems Const Denies chills, Denies fatigue, Denies fever(s), Denies headache(s) and Denies weakness ENT Denies dizziness and Denies headache(s) Card Denies dyspnea Resp Denies cough, Denies dyspnea, Denies wheezing and Denies other (shortness of breath) Musc Denies numbness and Denies tingling Neuro Denies dizziness, Denies headache(s), Denies numbness, Denies tingling and Denies weakness Psych Denies anxiety and Denies depression Endo Denies fatigue Aller/Immun Denies wheezing Physical exam (Primary Care) Vital Signs: Last Vital Signs Temp 97.9 F 02/20/25 11:16 Pulse 58 02/20/25 11:16 Resp 15 02/20/25 11:16 BP 128/68 02/20/25 11:16 Pulse Ox 95 02/20/25 11:16 Oxygen Delivery Method Room Air 02/20/25 11:16 BMI result Body Mass Index 35.4 Tobacco/Smoking Status: Tobacco use Status Tobacco use date assessed 02/20/25 02/20/25 11:15 Patient Tobacco Use Status Former Tobacco user 02/20/25 11:16 e-Cigarette/Vaping Use Never Used 02/20/25 11:16 PHQ-9: PHQ-9 Score PHQ-9: Total score 0 02/20/25 12:01 Thrive Assessment: Date of Thrive Assessment Date Thrive assessed 02/17/25 02/20/25 11:08 Currently or been in a relationship where the following occur: No concerns reported Const General: well developed; No acute distress Nutritional Appearance: well nourished Orientation/consciousness: patient oriented x3 HENMT Head: Yes normocephalic and Yes atraumatic Eyes General: appearance normal, both eyes and all related structures Pupils: Equal, round and reactive pupils present EOM: EOMs intact bilaterally Resp Effort & Inspection: normal respiratory effort Auscultation: clear to auscultation bilaterally Cardio Rate: regular rate Rhythm: abnormal rhythm Heart sounds: S1 normal heart sound present, S2 normal heart sound present, no gallops, no murmurs and no rubs Neuro General: patient oriented x3 and gait normal Cranial nerves: Yes Equal, round and reactive pupils present Psych Affect: normal affect Coding Level of Care Code Est Pt Level 4 (36688) Diagnoses Afib I48.91 Diastolic dysfunction I51.89 Parotid mass K11.8 Assessment & Plan Assessment & Plan (1) Afib: Code(s): I48.91 - Unspecified atrial fibrillation Category: Medical Plan: Atrial fibrillation was seen on prior EKG in hospital. At my last visit patient regular rhythm with some PACs Today EKG shows sinus rhythm with PACs, RBBB, and septal infarct age undetermined - prior EKG from 02/01/2025 mentions this as well. Awaiting Holter monitor test He is on aspirin Has referral to Cardiology (2) Diastolic dysfunction: Code(s): I51.89 - Other ill-defined heart diseases Category: Medical Plan: Stable Has referral to Cardiology (3) Parotid mass: Code(s): K11.8 - Other diseases of salivary glands Category: Medical Plan: Ultrasound was ordered but patient has not been contacted yet. I have asked the office staff to facilitate this appointment. He is already referred to ENT though ointment is in July. Will ask for sooner appointment if indicated by imaging.
[2025-02-20 11:16] VITALS: BP 128/68; PULSE 58; RESP 15; TEMP 36.6; O2SAT 95; BMI 35.4
--- OUTSIDE RECORDS SUMMARY | 2025-02-20 11:57 | XMS_ITS | Patient Health Record ---
[facility] Address [address] [place] [address] Care Team Providers Care Pharmacy Affairs Assistant Name Role Phone Kait SPIVEY, Miguel Primary Care Provider Rhonda Reji Martínez Unavailable [phone] Allergies No Known Allergies Reason For Referral No Information Medications Medication SIG (Take, Route, Frequency, Duration) Notes Start Date End Date Status Voltaren 1 % as directed Externally Active Night Splint AFO - L1930 as directed 04/17/2022 Active Immunizations Vaccine Route Administration Date Status Comme nts COVID-19 Moderna Vaccine Unknown 12/10/2021 Administered 12/09/20, 01/06/21 , 08/23/21 Social History Tobacco Use: Social History Observation Description Date Details (start date - stop date) Former Smoker NA - NA Tobacco Use/Smoking Question Answer Notes Are you a: former smoker Additional Findings: Tobacco Non-User Current no n-smoker Alcohol Screen Question Answer Notes Did you have a drink contain ing alcohol in the past year? Yes How often did you have a dri nk containing alcohol in the past year? Monthly or less (1 point) Points 1 Interpretation Negative Tobacco use other than smoking: Question Answer Notes Are you an other tobacco user? 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 confirmed Plan Of Treatment Pending Test Test Name Order Date X ray : Foot, left 3V 04/17/2022 X ray : Foot, right 3V 04/17/2022 Insurance Providers Payer Name Payer Address Payer Phone Subscriber Number Group Number Insured Name Patient Relationship to Insured Coverage Start Date Coverage End Date Medicare [employer] [address] [place] [phone] [id number] Adolfo Concepcion Self - patient is the insured AARP Secondary to Medicare [address] [place] [address] [phone] [id number] Adolfo Concepcion Self - patient is the insured Medical (General) History Medical History History ICD Code Arthritis Back,Hip,and Knee pain Chicken pox Measles Mumps Surgical History Surgery Date(Month/Year)
== END 2025-02-20 12:35 | disposition home or self-care (01) ==
LOC: HO.HMCFM 10:52
PROVIDERS: PCP Family Medicine; Visit Provider Family Medicine
DX: I48.91 Unspecified atrial fibrillation (principal); I51.89 Other ill-defined heart diseases; K11.8 Other diseases of salivary glands

== ENCOUNTER → 2025-02-20 10:52 | Outpatient (BNVA) | payer MEDICARE, SELFPAY | PROVIDERS: PCP Family Medicine; Visit Provider Family Medicine | DX: I48.91 Unspecified atrial fibrillation (principal); I51.89 Other ill-defined heart diseases; K11.8 Other diseases of salivary glands | CPT/HCPCS: 99212 ==

== ENCOUNTER → 2025-02-26 10:07 | Outpatient (REF) | payer MEDICARE, SELFPAY ==
--- NOTE | 2025-02-26 10:09 | HM_ITS ---
Conclusion: 1. Patient was monitored for total period of 2 days 2. Baseline was normal sinus rhythm with average heart of 62 beats per minute 3. Frequent sinus bradycardia noted with 51% of the time heart rate below 60 beats per minute with no significant pauses 4. Frequent PVCs noted with total burden of 2.7% with 2 3 beat salvos of nonsustained VT at 140 beats per minute 5. Occasional PACs noted with total burden of 0.42% with 129 short runs of SVE, longest lasting 13 beats at 165 beats per minute 6. No patient reported events MTDD
--- OUTSIDE RECORDS SUMMARY | 2025-02-26 10:52 | XMS_ITS | Patient Health Record ---
Author Organization [facility] [place] Address [address] [place] [address] Care Team Providers Care Machine Filler Name Role Phone Kait SPIVEY, Miguel Primary Care Provider Rhonda Reji Martínez Unavailable [phone] Allergies No Known Allergies Reason For Referral [...] Status Risk Notes Problem Plantar fascial fibromatosis ([id number]) Plantar fascial fibromatosis (M72.2) Active confirmed Problem [...] Inc [address] [place] [phone] [id number] Adolfo Concepcion Self - patient is the insured AARP Secondary to Medicare [address] [place] [address] [phone] [id number] Adolfo Concepcion Self - patient is the insured Medical (General) History Medical History History ICD Code Arthritis Back,Hip,and Knee pain Chicken pox Measles Mumps Surgical History Surgery Date(Month/Year)
== END ==
LOC: HO.CARD 10:07
PROVIDERS: PCP Family Medicine; Visit Provider Family Medicine
DX: I48.91 Unspecified atrial fibrillation (principal)
CPT/HCPCS: 93225

== ENCOUNTER → 2025-02-26 10:09 | Outpatient (BNV) | payer MEDICARE, SELFPAY | PROVIDERS: PCP Family Medicine; Visit Provider Internal Medicine Cardiovascular Disease | DX: I49.1 Atrial premature depolarization (principal); I49.3 Ventricular premature depolarization | CPT/HCPCS: 93227 ==

== ENCOUNTER 2025-03-16 10:00 | Outpatient (REF) | payer MEDICARE, SELFPAY ==
--- NOTE | ~2025-03-16 | US_ITS ---
CLINICAL HISTORY: K11.8 - Other diseases of salivary glands --- Additional Notes or Special Instructions: PAROTID MASS Exam: Ultrasound of parotid glands Comparison: Multiple attempts were made to obtain prior exam for comparison, the CTA head neck report 01/17/2025 became available for comparison, the report states bilateral mildly enhancing parotid masses up to 1.8 cm, no images are available. Findings: Multiple lesions are visualized in bilateral parotid glands: On the right: Well-defined anechoic ovoid mass with moderately increased through transmission and internal vascular flow in the superficial lobe, 8 x 5 x 8 mm, may reflect necrotic lymph node or complex cystic mass. Lobulated well-circumscribed anechoic lesion with mild through transmission without internal septation or mural nodularity in the deep lobe, avascular, probably cyst, 2.7 x 0.9 x 1.3 cm. On the left: Elongated well-defined anechoic lesion in the superficial lobe, moderately increased through transmission, no septation, mural nodularity or vascular flow, suggestive of cyst, 1.7 x 0.5 x 1.4 cm. In the deep lobe, lobulated hypoechoic mass, no posterior acoustic features or internal vascular flow, 2.2 x 2.0 x 0.8 cm, indeterminate. Small lymph node with fatty hilum is noted in the left parotid gland 5 x 3 x 7 mm. Impression: Left parotid hypoechoic mass and right parotid cystic lesion with vascular flow are indeterminate, additional bilateral parotid cysts, somewhat discordant to the reported CTA findings of enhancing masses, recommend MRI neck without and with IV contrast for further evaluation. This document has been electronically signed by: Denisha Dillon MD on 03/20/2025 10:02:50
--- OUTSIDE RECORDS SUMMARY | 2025-03-16 10:11 | XMS_ITS | Patient Health Record ---
Author Organization [facility] [place] Address [address] [place] [address] Care Team Providers Care Bronzer Name Role Phone Kait SPIVEY, Miguel Primary Care Provider Rhonda Reji Martínez Unavailable [phone] Allergies No Known Allergies Reason For Referral [...] Status Risk Notes Problem Plantar fascial fibromatosis ([id number]) Plantar fascial fibromatosis (M72.2) Active confirmed Problem [...] Inc [address] [place] [phone] [id number] Adolfo Concepcion Self - patient is the insured AARP Secondary to Medicare [address] [place] [address] [phone] [id number] Adolfo Concepcion Self - patient is the insured Medical (General) History Medical History History ICD Code Arthritis Back,Hip,and Knee pain Chicken pox Measles Mumps Surgical History Surgery Date(Month/Year)
== END 2025-03-16 10:01 | disposition home or self-care (01) ==
LOC: HO.HMGCX 10:00
PROVIDERS: PCP Family Medicine; Visit Provider Family Medicine
DX: K11.8 Other diseases of salivary glands (principal)
CPT/HCPCS: 76536

== ENCOUNTER → 2025-03-16 10:10 | Outpatient (BNV) | payer MEDICARE, SELFPAY | PROVIDERS: PCP Family Medicine; Visit Provider Radiology Diagnostic Radiology | DX: D37.030 Neoplasm of uncertain behavior of the parotid salivary glands (principal) | CPT/HCPCS: 76536 ==

== ENCOUNTER 2025-03-19 16:04 | Outpatient (AMB) | payer MEDICARE, SELFPAY ==
--- NOTE | 2025-03-19 16:04 | MHC.PC.OV ---
Intake Visit Reasons: f/u holter monitor via telemed Allergies No Known Allergies Allergy (Verified 03/19/25 16:04) Tobacco use date assessed: 03/19/25 Fall risk assessment: No Falls in past year Last assessed Fall Risk: 03/19/25 Dental Screening Dental Screen Date: 03/19/25 Did you have a dental visit in the last 12 months?: No Did you have a dental problem in the last 6 months where you did not have access to dental care?: No Was dental information given to patient?: Patient declined HPI f/u holter monitor via telemed HPI Details 85 y/o male presents to f/u holter monitor test. Holter monitor 02/26/25 shows: Conclusion: 1. Patient was monitored for total period of 2 days 2. Baseline was normal sinus rhythm with average heart of 62 beats per minute 3. Frequent sinus bradycardia noted with 51% of the time heart rate below 60 beats per minute with no significant pauses 4. Frequent PVCs noted with total burden of 2.7% with 2 3 beat salvos of nonsustained VT at 140 beats per minute 5. Occasional PACs noted with total burden of 0.42% with 129 short runs of SVE, longest lasting 13 beats at 165 beats per minute 6. No patient reported events [facility] History Prostate cancer Surgical History History of back surgery Social History Household Members: Significant Other Housing: House Are you a primary regular senior care provider to a significant other at home: No Do you presently have visiting nurse or other home services: No 75 years or older and lives alone: No Alcohol intake: never Patient Tobacco Use Status: Former Tobacco user Years Smoked: quit smoking in 1971 e-Cigarette/Vaping Use: Never Used service: Yes Current occupational status: employed Current occupation: [employer]. Cognitive needs: No Hearing needs: No Vision needs: No Questionnaire PHQ-9 Over the last 2 weeks, how often have you been bothered by any of the following problems? 1. Little interest or pleasure in doing things: not at all 2. Feeling down, depressed, or hopeless: not at all 3. Trouble falling or staying asleep, or sleeping too much: not at all 4. Feeling tired or having little energy: not at all 5. Poor appetite or overeating: not at all 6. Feeling bad about yourself - or that you are a failure or have let yourself or your family down: not at all 7. Trouble concentrating on things, such as reading the newspaper or watching television: not at all 8. Moving or speaking so slowly that other people could have noticed. Or the opposite - being so fidgety or restless that you have been moving around a lot more than usual: not at all 9. Thoughts that you would be better off or of hurting yourself in some way: not at all Total score: 0 Source: Developed by Drs. Dominick Moe, Leigh Ramirez, Abel Vuong and colleagues, with an educational loren from [employer]. Thrive Questionnaire Date Thrive assessed: 02/17/25 I am a: Patient What is your living situation today?: I have a steady place to live Within the past 12 months, did the food you bought not last and you didn't have the money to get more?: Never true Within the past 12 months, did you worry whether your food would run out before you got money to buy more?: Never true Do you have trouble paying for medicines?: Yes Do you have trouble getting transportation to medical appointments?: No Do you have trouble paying your heating and electricity bill?: No Do you have trouble taking care of your child, family member or friend?: No Do you have trouble with day-to-day activities such as bathing, preparing meals, shopping, managing finances, etc.?: No Are you currently unemployed and looking for a job?: No Are you interested in more education?: No Please select the resources that you would like help with: None Currently or been in a relationship where the following occur: No concerns reported THRIVE Score: 0 AUDIT C Alcohol Use Questionnaire (AUDIT-C) 1. How often do you have a drink containing alcohol?: Never 3. How often do you have six or more drinks on one occasion?: Never Total Score: 0 FAIZAN-7 AMB Questionnaire FAIZAN-7 Date FAIZAN - 7 assessed: 02/20/25 Feeling nervous, anxious, or on edge: 0 = Not at all Not being able to stop or control worryin = Not at all Worrying too much about different things: 0 = Not at all Trouble relaxin = Not at all Being so restless that it is hard to sit still: 0 = Not at all Becoming easily annoyed or irritable: 0 = Not at all Feeling afraid as if something awful might happen: 0 = Not at all Total FAIZAN-7 score (0-4 normal; 5-9 mild; 10-14 moderate; 15-21 severe): 0 Source: Developed by Drs. Dominick Moe, Leigh Ramirez, Abel Vuong and colleagues, with an educational loren from [employer]. Review of Systems Const Denies chills, Denies fatigue, Denies fever(s), Denies headache(s) and Denies weakness ENT Denies dizziness and Denies headache(s) Card Denies dyspnea Resp Denies cough, Denies dyspnea, Denies wheezing and Denies other (shortness of breath) Musc Denies numbness and Denies tingling Neuro Denies dizziness, Denies headache(s), Denies numbness, Denies tingling and Denies weakness Psych Denies anxiety and Denies depression Endo Denies fatigue Aller/Immun Denies wheezing Physical exam (Primary Care) Tobacco/Smoking Status: Tobacco use Status Tobacco use date assessed 03/19/25 03/19/25 16:06 Patient Tobacco Use Status Former Tobacco user 03/19/25 16:06 e-Cigarette/Vaping Use Never Used 03/19/25 16:06 PHQ-9: PHQ-9 Score PHQ-9: Total score 0 03/19/25 17:08 Thrive Assessment: Date of Thrive Assessment Date Thrive assessed 02/17/25 03/19/25 16:06 Currently or been in a relationship where the following occur: No concerns reported Telehealth Telehealth Telehealth Platform: Telephone Location of provider rendering services: practice address Location of patient: address on file Patient Identification confirmed using: Name, : Yes Telehealth method: voice only Patient verbally consented to treatment: Yes Patient verbally consented to billing insurance company: Yes Patient informed of any privacy concerns related to visit: Yes Minutes spent on Phone/Video with Pt.: 14 Coding Level of Care Code Tele Est Pt Level 2 (99439) Diagnoses Irregular heart rhythm I49.9 Parotid mass K11.8 Assessment & Plan Assessment & Plan (1) Irregular heart rhythm: Code(s): I49.9 - Cardiac arrhythmia, unspecified Category: Medical Plan: Holter monitor shows frequent PVCs and also PACs Patient has been mildly symptomatic with dizziness. He has an upcoming appointment with cardiology (2) Parotid mass: Code(s): K11.8 - Other diseases of salivary glands Category: Medical Plan: Ultrasound head and neck showed complex cysts of parotid gland He has been referred to ENT Will ask the office to fax the ultrasound results and request a sooner appointment.
--- OUTSIDE RECORDS SUMMARY | 2025-03-19 16:07 | XMS_ITS | Patient Health Record ---
Author Organization [facility] [place] Address [address] [place] [address] Care Team Providers Care Fire Protection Fabricator Name Role Phone Kait SPIVEY, Miguel Primary Care Provider Rhonda Reji Martínez Unavailable [phone] Allergies No Known Allergies Reason For Referral [...] Status Risk Notes Problem Plantar fascial fibromatosis ([id number]) Plantar fascial fibromatosis (M72.2) Active confirmed Problem [...] Inc [address] [place] [phone] [id number] Adolfo Concepcion Self - patient is the insured AARP Secondary to Medicare [address] [place] [address] [phone] [id number] Adolfo Concepcion Self - patient is the insured Medical (General) History Medical History History ICD Code Arthritis Back,Hip,and Knee pain Chicken pox Measles Mumps Surgical History Surgery Date(Month/Year)
== END 2025-03-19 17:05 | disposition home or self-care (01) ==
LOC: HO.HMCFM 16:04
PROVIDERS: PCP Family Medicine; Visit Provider Family Medicine
DX: I49.9 Cardiac arrhythmia, unspecified (principal); K11.8 Other diseases of salivary glands

== ENCOUNTER 2025-05-14 13:09 | Outpatient (AMB) | payer MEDICARE, SELFPAY ==
--- NOTE | 2025-05-14 13:28 | MHC.OFFVIS ---
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 In January 2025 he was at [facility] where he presented with confusion. EKG was performed which was read as atrial fibrillation and he was sent to [facility] for further assessment. He had workup done at [facility] and eventually discharged home with diagnosis of TIA. He was started on baby aspirin. He had echocardiography done which showed normal LV function. I reviewed his EKGs at [facility] at [facility]. His rhythm was sinus with frequent premature atrial complexes. He is saying that he has skipped beats for long time. No definitive evidence of atrial fibrillation was noted. He subsequently had Holter monitor done which did not show atrial fibrillation. He did have some PVCs and premature atrial complexes noted. He continues to be asymptomatic. His main complaints are related to occasional dizziness and some balance issues walking around. [facility] Medical History (Updated 05/14/25 @ 14:02 by Tom Hurtado MD) Prostate cancer Surgical History History of back surgery Social History Household Members: Significant Other Housing: House Are you a primary direct care specialist to a significant other at home: No Do you presently have visiting nurse or other home services: No 75 years or older and lives alone: No Alcohol intake: never Patient Tobacco Use Status: Former Tobacco user Years Smoked: quit smoking in 1971 e-Cigarette/Vaping Use: Never Used service: Yes Current occupational status: employed Current occupation: [employer]. Cognitive needs: No Hearing needs: No Vision needs: No Review of Systems Const Denies chills, Denies fatigue, Denies fever(s), Denies frequent falls, Denies weakness, Denies weight gain and Denies weight loss ENT Denies dizziness Card Denies chest pain, Denies leg edema, Denies lightheadedness, Denies palpitations, Denies dyspnea and Denies dyspnea on exertion Resp Denies cough, Denies dyspnea and Denies dyspnea on exertion GI Denies hematochezia Musc Denies abnormal gait, Denies muscle weakness, Denies numbness, Denies radiating pain into limb and Denies tingling Neuro Denies abnormal gait, Denies dizziness, Denies frequent falls, Denies numbness, Denies tingling and Denies weakness Endo Denies fatigue and Denies palpitations Physical Exam Vital Signs: Last Vital Signs Pulse 62 05/14/25 13:31 BP 130/62 05/14/25 13:31 BMI result Body Mass Index 23.0 GENERAL APPEARANCE: in no acute distress, pleasant. NECK: no carotid bruit, no jugular venous distention. SKIN: no suspicious lesions, warm and dry. HEART: no murmurs, regular rate and rhythm. LUNGS: clear to auscultation bilaterally. ABDOMEN: soft, nontender. EXTREMITIES: no edema. PERIPHERAL PULSES: equal. NEUROLOGIC: No gross deficits, AAO X 3 Office Procedures EKG Details: Sinus rhythm 62 beats per minute, right bundle-branch block, septal infarct, QTC 452 milliseconds. [id number], Complete Assessment & Plan Assessment & Plan (1) Premature atrial complexes: Code(s): I49.1 - Atrial premature depolarization Category: Medical Plan Pleasant 85 year gentleman who is here for questionable episode of atrial fibrillation noted during ER visit at [facility]. I reviewed the EKGs and he had sinus rhythm with premature atrial complexes. No evidence of atrial fibrillation noted on EKGs. Holter monitor also did not show atrial fibrillation. He has no palpitations currently. Continue baby aspirin for TIA. Hydration and avoidance of heat as much as possible. Currently no further testing is required. He will see us back in 6 months. Thank you for allowing me to participate in the care of your patient. Please feel free to contact me if you have any questions. Coding Level of Care Code New Pt Level 4 (31681) Diagnoses Premature atrial complexes I49.1 CPT Codes EKG - CPT: 28969-[id number], Complete ([id number])
[2025-05-14 13:31] VITALS: BP 130/62; PULSE 62; BMI 23.0
--- OUTSIDE RECORDS SUMMARY | 2025-05-14 14:28 | XMS_ITS | Patient Health Record ---
Author 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
== END 2025-05-14 14:04 | disposition home or self-care (01) ==
LOC: HO.HCS 13:10
PROVIDERS: PCP Family Medicine; Visit Provider Internal Medicine Cardiovascular Disease
DX: I49.1 Atrial premature depolarization (principal)
CPT/HCPCS: 93010; 99204

== ENCOUNTER → 2025-05-14 13:09 | Outpatient (BNVA) | payer MEDICARE, SELFPAY | PROVIDERS: PCP Family Medicine; Visit Provider Internal Medicine Cardiovascular Disease | DX: I49.1 Atrial premature depolarization (principal) | CPT/HCPCS: 93005; 99202 ==

== ENCOUNTER 2025-07-18 10:02 | Outpatient (REF) | payer MEDICARE, OTHER, SELFPAY ==
[2025-07-18 11:23] LABS: MANUAL DIFF FLAG NO
[2025-07-18 11:29] LABS: Hematocrit 47.1 % (42.0-52.0); Hemoglobin 15.8 g/dl (14.0-18.0); Imm Gran Abs Auto 0.02 X10*3/uL (0.00-0.03); Imm Gran Pct Auto 0.3 % (0.0-0.4); Lymphocytes Absolute Auto 1.1 X10*3/uL (1.2-4.9); Mean Corpuscular HGB Conc 33.5 g/dl (31.0-36.0); Mean Corpuscular Hemoglobin 31.9 pg (27.0-33.0); Mean Corpuscular Volume 95.0 fL (80.0-98.0); NRBC Abs Auto 0.000 X10*3/uL (0.0-0.012); NRBC Pct Auto 0.0 /100WBC (0.0-0.2); Platelet Count 163 X10*3/uL (160-400); Red Blood Count 4.96 X10*6/uL (4.60-5.80); White Blood Count 7.7 X10*3/uL (4.8-10.8)
[2025-07-18 11:31] LABS: Appearance Urine Clear; Glucose Urine UA Negative (Negative); PH 5.0 (5.0-9.0); Specific Gravity - Urine >= 1.030 (1.005-1.025)
[2025-07-18 11:52] LABS: Alanine Aminotransferase 13 U/L (0-40); Albumin Level 3.7 g/dL (3.5-5.0); Alkaline Phosphatase 97 U/L (39-117); Anion Gap 9 (12-20); Aspartate Amino Transferase 22 U/L (5-37); Blood Urea Nitrogen 32 mg/dL (9-16); Calcium 8.8 mg/dL (8.4-10.2); Carbon Dioxide 27 mmol/L (22-29); Chloride 112 mmol/L (96-108); Cholesterol 132 mg/dL (<200); Estimated Glomerular Filt Rate > 60; HDL Cholesterol 39 mg/dL (>40); Potassium 4.0 mmol/L (3.3-5.1); Sodium 144 mmol/L (135-145); Total Protein 6.1 g/dL (6.5-8.0); Triglycerides 58 mg/dL (<150)
[2025-07-18 11:59] LABS: Microalbum/Creatinine Ratio Ur 8.2 ug/mg cr (<30)
== END 2025-07-18 10:03 | disposition home or self-care (01) ==
LOC: HO.WFDLDS 10:02
PROVIDERS: Visit Provider Family Medicine
DX: Z00.00 Encounter for general adult medical examination without abnormal findings (principal); I10 Essential (primary) hypertension
CPT/HCPCS: 36415; 80053; 80061; 81003; 82043; 82570; 84443; 85025

== ENCOUNTER 2025-08-08 10:15 | Outpatient (AMB) | payer MEDICARE, SELFPAY ==
--- NOTE | 2025-08-08 10:17 | A.OFFVIS_ITS ---
Intake Vital Signs 08/08/25 10:30 08/08/25 10:40 08/08/25 11:01 Height 6 ft Weight 169 lb BMI 22.9 BP 142/79 H 153/68 H 118/60 Blood Pressure Location Rt brachial Rt brachial Lt brachial Position Sitting Sitting Sitting Respiration 16 Pulse 66 Pulse Source Pulse Oximeter Temp 97.4 F Temp Source Oral Pulse Oximetry (%) 98 Oxygen Delivery Method Room Air Intake Visit Reasons: Wellness Exam / Dr. 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 The Medicare Annual Wellness Visit (AWV) is a yearly appointment with a health professional to identify health risks and help reduce them and to create or update a personalized prevention plan. During a Medicare AWV, health professionals should also review any current opioid prescriptions, detect any cognitive impairment, and establish or update medical and family history. 85 y/o M with CHF, parotid mass, thrombo cytopenia, hx of prostate ca, PACs, SurgHx: Y FHx: Y SocHx: Y Health Maintenance: See scanned preventative medicine assessment with personalized health plan and screening schedule. Colon: reports done in the past, negative, does not want any more Vaccines: Tdap 2023, Flu 08/08/25, declined shingesl will check w/ pharmacy about pneumococcall AAA screen: screened out EKG: done today, see below. Labs: 07/18/25 LDL 82, PSA <0.10 11/02/23 [place] of Care: as documented in chart Visual Acuity: glasses, last exam about 1 year ago Hearing Screening: GABI lucia, hearing test done at ENT recently, worse on R, candidate for hearing aides, unsure ACP: HCP Y, DNR/DNI Dietary/Nutrition/Exercise Edu provided: Y During the course of the visit the patient was educated and counseled about a ppropriate screening and preventative services. Patient instructions were provided to the patient in written or electronic format. I have reviewed and verified the above information. History of Present Illness The patient is an 85 year old male presenting for an annual Medicare wellness visit. Atrial Arrhythmia and Conduction Disorder: - He has a history of premature atrial c ontractions (PACs) and has experienced a sensation of heart hesitation for 60-70 years, which his wood tank erector previously dismissed. - An EKG performed by cardiology on 05/14 showed normal sinus rhythm, a right bundle branch block (RBBB), a septal infarct of undetermined age, and a QTc of 452. - An EKG in the office today showed sinu s rhythm with PACs, RBBB, a new left anterior fascicular block, and a borderline QTc of 509, representing a change from the prior EKG. - He denies any current symptoms of dizz iness, weakness, feeling faint, or chest pain. - He is scheduled for a routine follow-u p with his wood tank erector, Dr. Hurtado, in October. History of Prostate Cancer: - He has a history of prostate cancer tr eated with brachytherapy (seeds) in 1999. - His PSA levels have remained suppresse d since treatment, with the last check on 11/02/23 being less than 0.10. - He is currently due for his annual PSA screening. Chronic Pain: - The patient reports chronic back probl ems for which he receives injections. - He also has pain in both knees. - He occasionally takes Tylenol 500 mg f or back pain. Hearing Loss: - The patient reports problems with his hearing. - A recent hearing test showed a slight deficit in his right ear, and he was advised he could get hearing aids if desired, but he has declined to pursue them. Past Medical History: - His past medical history is also signi ficant for congestive heart failure, a parotid mass, and thrombocytopenia, with a recent CBC on 07/18/25 noted as stable. - He was hospitalized last summer for a suspected heart attack after experiencing an episode of memory loss lasting about an hour; the cardiac workup was negative, and the memory loss has not recurred. Past Medical History - Congestive heart failure - Parotid mass - Thrombocytopenia - History of prostate cancer, treated in 1999 - Premature atrial contractions - Right bundle branch block - Left anterior fascicular block - Septal infarct, age undetermined - Chronic back pain - Bilateral knee pain - Hearing loss - History of transient memory loss episo de - Medications: He takes Tylenol 500 mg f or back pain, a baby aspirin, and a B complex vitamin. Past Surgical History - Prostate brachytherapy (seeds) in 1999 . - No new surgeries in the past year. Social History - Marital Status: and lives with his . 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 - Support System: He has a son and grand son who help with yard work. - Functional Status: Denies falls. - Cognitive Status: He denies any concer ns about his memory. - Nutrition/Weight: He reports an uninte ntional weight loss from a previous weight of 220-240 lbs down to his current 169 lbs, which he attributes to eating less; his weight has been stable since the summer. - Advanced Care Planning: He has a healt hcare proxy (son and ) and an advance care plan/living will, and he does not wish to have CPR. Health Maintenance - The influenza vaccine will be administ ered in the office today. - He reports he is up-to-date on COVID-1 9 vaccinations and will obtain the next one at a pharmacy. - He declined the shingles vaccine. - A diabetes screen (A1c) performed toda y was normal at 5.0%. - Recent labs show a well-controlled LDL of 82. Review of Systems - Constitutional: Denies weakness. Repor ts history of significant, unintentional but now stable weight loss. - Cardiovascular: Denies chest pain. Rep orts a chronic sensation of heart hesitation but denies acute palpitations. - Neurological: Denies dizziness or feel ing faint. Denies memory concerns. He does report a single, transient episode of memory loss about a year ago. - Musculoskeletal: Reports chronic back problems and pain in both knees. - HEENT: Reports hearing problems. - Gastrointestinal: Denies problems with bowel movements or bleeding. - Genitourinary: Denies problems with ur ination. - Skin: Denies open areas or sores on hi s feet. Physical Exam General: Well developed, well nourished, in no acute distress. Appears stated age. Head: Normocephalic, atraumatic. Eyes: Pupils are equal, round and reactive to light and accommodation. Conjunctivae are clear. Scleras nonicteric bilat. Vision grossly normal. Ears: TMs clear AU, EACS WNL. Slight hearing loss on the right side, hearing aids recommended but not pursued. Nose: Patent, without discharge. Neck: No carotid bruit bilat. Supple, no adenopathy or thyromegaly. Breast: Edu on SBE Lungs: Clear to auscultation bilaterally. No rales, rhonchi or wheeze noted. Good air flow in all dia. Heart: Regular rate and rhythm. No murmurs, click, rubs or gallops are noted. EKG shows sinus rhythm with PACs, right bundle branch block, left anterior fascicular block, and borderline QTC at 509. Abdomen: Bowel sounds present in all quadrants. The abdomen is soft, nontender, with no masses or organomegaly noted. No hernias are noted. : Deferred. Reviewed AIDAN & recommendations Pulses: Peripheral pulses are equal and palpable bilaterally. Extremities: No clubbing, cyanosis nor edema is noted. Neurologic: Gait and station normal. Cranial Nerves 2-12 intact. Motor strength grossly symmetrical and intact. No sensory loss. Balance normal. Skin: No rashes, ulcers, or lesions noted. Turgor is good. Skin color is good. Hair and nails are without abnormalities. SEnile purpura bilat hands, Noted bandage on hand due to a minor skin tear. Psych: Normal eye contact, affect and mood appropriate, and normal interactions. Patient is alert and appropriate to context. No memory concerns reported. Results - EKG (Today): Sinus rhythm with PACs, r ight bundle branch block, left anterior fascicular block, and borderline QTC of 509. - EKG (05/14/25, per report): Normal sinu s rhythm, right bundle branch block, septal infarct (age undetermined), and QTC of 452. - Labs (07/18/25): LDL 82, stable CBC. - Labs (Today): Hemoglobin A1c 5.0%. - Labs (11/02/23): PSA < 0.10. Medical Decision Making The patient is an 85-year-old male here for a Medicare wellness visit. The most significant finding today is a change on his EKG, which now shows a left anterior fascicular block and QTc prolongation to 509 compared to a cardiology EKG from three months prior. Given his pre-existing right bundle branch block, these new findings indicate a trifascicular block, which carries a small risk of progression to complete heart block. Although he is currently asymptomatic, denying dizziness or syncope, the EKG will be forwarded to his wood tank erector, Dr. Hurtado, for review to determine if follow-up is needed sooner than his currently scheduled October appointment. The patient was counseled on the warning signs of heart block, such as dizziness or syncope, and instructed to seek emergency care if these symptoms develop. Regarding health maintenance, he is due for a PSA check for surveillance of his history of prostate cancer. After a discussion about the implications of testing, he elected to defer the lab draw until his next visit, and an order will be placed for that time. His lipids and glucose are well-controlled based on recent labs and in-office testing. He will receive an influenza vaccine today and will obtain an updated COVID-19 vaccine from a pharmacy. Plan 1. Cardiac Conduction Disorder - Today's EKG showed new left anterior f ascicular block and QTc prolongation to 509 compared to a prior EKG from three months ago. - His EKG will be sent to his cardiologi st, Dr. Hurtado, for review to assess if an earlier follow-up is needed before his scheduled October appointment. - The patient was educated about the ris k of heart block and instructed to go to the emergency room for any new dizziness, syncope, excessive weakness, or chest pain. 2. History Of Prostate Cancer - The patient is due for annual PSA scre ening. - After discussing the decision-making p rocess for an abnormal result, he has elected to defer the blood draw until his next visit. - An order for a PSA level will be place d for him to complete at a future date. 3. Chronic Pain - He continues to experience chronic megan k and bilateral knee pain. - He reports management with occasional Tylenol and injections for his back. - No changes were made to his pain manag ement plan today. 4. Senile purpura, monitor skin integrit y. 5. Flu shot today. Patient Instructions - Your EKG will be sent to your heart do ctor, Dr. Hurtado, to review (done) His office will call you if you need to be seen sooner than your appointment in October. - Go to the emergency room or call 911 i f you start to feel dizzy, feel like you are going to faint, have extreme weakness, or have chest pain. - You will get a flu shot today before y ou leave the office. - You can get your next COVID-19 vaccine at a pharmacy. - An order for your prostate blood test (PSA) has been put in. You can get this blood test done the next time you are here. - Your diabetes screening test today was normal. - Be careful when you remove the bandage from your hand so you do not tear your skin. -RTO 1 year sAWV sooner as needed. Consent Patient was informed and verbally consented to the use of an ambient scribe for clinic note documentation during this visit. An additional 30 minutes was spent addressing the problem(s) noted at todays visit. This includes time spent before the visit reviewing the chart, time spent during the visit, and time spent after the visit on documentation reviewing laboratory results, diagnostic imaging, medications, performing a medically necessary evaluation, counseling on diagnoses, care coordination, ordering appropriate tests, ordering appropriate medications, review of tests performed by other providers, reporting test results with the patient, communication with other healthcare providers. [facility] Medical History (Updated 08/08/25 @ 11:16 by Renee Phipps [facility]) Prostate cancer Surgical History History of back surgery Social History Household Members: Significant Other Housing: House Are you a primary complex care nurse practitioner to a significant other at home: No Do you presently have visiting nurse or other home services: No 75 years or older and lives alone: No Alcohol intake: never Patient Tobacco Use Status: Former Tobacco user Years Smoked: quit smoking in 1971 e-Cigarette/Vaping Use: Never Used service: Yes Current occupational status: employed Current occupation: [employer]. Cognitive needs: No Hearing needs: No Vision needs: No Questionnaire Medicare Wellness Checkup What is your age?: 80 or older What gender do you identify with?: male During the past 4 weeks, how much have you been bothered by emotional problems such as feeling anxious, depressed, irritable, sad or downhearted, and blue?: not at all During the past 4 weeks, has your physical & emotional health limited your social activities with family, friends, neighbors, or groups?: not at all During the past 4 weeks, how much bodily pain have you generally had?: moderate pain During the past 4 weeks, was someone available to help you if you needed & wanted help?: yes, as much as I wanted During the past 4 weeks, what was the hardest physical activity you could do for at least 2 minutes?: moderate Can you get to places out of walking distance without help? (For eg., can you travel alone on buses, taxis or drive your car?): Yes Can you go shopping for groceries or clothes without someone's help?: Yes Can you prepare your own meals?: Yes Can you do your housework without help?: Yes Because of any health problems, do you need the help of another person with your personal care needs such as eating, bathing, dressing or getting around the house?: No Can you handle your own money without help?: Yes During the past 4 weeks, how would you rate your health in general?: very good During the past 4 weeks how have things been going for you?: very well; could hardly better Are you having difficulties driving your car?: no Do you always fasten your seat belt when you are in a car?: yes, usually During past 4 weeks, have you been bothered by the following: never: Falling or dizzy when standing up, Sexual problems?, Trouble eating well?, Teeth or denture problems?, Problems using the telephone? and Tiredness or fatigue? Have you fallen 2 or more times in the past year?: No Are you afraid of falling?: Yes Are you a smoker?: no During the past 4 weeks, how many drinks of wine, beer, or other alcoholic beverages did you have?: no alcohol at all Do you exercise for about 20 minutes 3 or more times a week?: yes, all the time Have you been given information to help with the following?: yes: Hazards in your house that might hurt you? and no: Keeping track of your medications? How often do you have trouble taking medicines the way you have been told to take them?: I always take medicine as prescribed How confident are you that you can control & manage most of your health problems?: very confident What is your race?: White Activity of Daily Living Bathing - sponge bath, tub bath or shower: receives no assistance (gets in/out by self, if usual bathing means Dressing - getting clothes from closets & drawers, including inner/outer garments & fasteners.: gets clothes & gets completely dressed without help Toileting - going to the 'toilet room' for urine/bowel elimination & cleaning self/arranging clothes: goes to toilet room, cleans self, arranges clothes w ithout help Transfer: moves in & out of bed and chair without help (may use support object) Continence: controls urination/bowel movements completely by self Feeding: feeds self without help Total Score: 0 Information obtained from: patient Using telephone: independent Traveling: independent Shopping: independent Preparing meals: independent Housework: independent Taking medicine: independent Managing money: independent PHQ-9 Over the last 2 weeks, how often have you been bothered by any of the following problems? 1. Little interest or pleasure in doing things: not at all 2. Feeling down, depressed, or hopeless: not at all 3. Trouble falling or staying asleep, or sleeping too much: not at all 4. Feeling tired or having little energy: not at all 5. Poor appetite or overeating: not at all 6. Feeling bad about yourself - or that you are a failure or have let yourself or your family down: not at all 7. Trouble concentrating on things, such as reading the newspaper or watching television: not at all 8. Moving or speaking so slowly that other people could have noticed. Or the opposite - being so fidgety or restless that you have been moving around a lot more than usual: not at all 9. Thoughts that you would be better off or of hurting yourself in some way: not at all Total score: 0 Depression Screening Interpretation: Negative Depression Screening Done: Yes 51436 - PHQ-9 Billing: Yes Source: Developed by Drs. Dominick Moe, Leigh Ramirez, Abel Vuong and colleagues, with an educational loren from [employer]. Physical Exam Vital Signs: Last Vital Signs Temp 97.4 F 08/08/25 10:30 Pulse 66 08/08/25 10:30 Resp 16 08/08/25 10:30 BP 153/68 H 08/08/25 10:40 Pulse Ox 98 08/08/25 10:30 Oxygen Delivery Method Room Air 08/08/25 10:30 BMI result Body Mass Index 22.9 Office Procedures Vision Screening Right Eye: 20/25 Left Eye: 20/25 Bilateral: 20/25 44165 - Vision Screening EKG [id number], Complete Vision Screening 61906 - Vision Screening Results AMB Hemoglobin A1c AMB Hemoglobin A1c 5.0 % Last Edit by Raquel Nowak CMA on 08/08/25 11:01 Assessment & Plan Assessment & Plan (1) Encounter for subsequent annual wellness visit (AWV) in Medicare patient: Onset Date: ~08/08/25 Code(s): Z00.00 - Encounter for general adult medical examination without abnormal findings (2) History of prostate cancer: Code(s): Z85.46 - Personal history of malignant neoplasm of prostate (3) ACP (advance care planning): Onset Date: ~08/08/25 Code(s): Z71.89 - Other specified counseling (4) Immunization counseling: Code(s): Z71.85 - Encounter for immunization safety counseling (5) Influenza vaccination administered at current visit: Onset Date: ~08/08/25 Code(s): Z23 - Encounter for immunization (6) Herpes zoster vaccination declined: Onset Date: ~08/08/25 Code(s): Z28.21 - Immunization not carried out because of patient refusal (7) DNR (do not resuscitate): Code(s): Z66 - Do not resuscitate (8) Laboratory exam ordered as part of routine general medical examination: Code(s): Z00.00 - Encounter for general adult medical examination without abnormal findings (9) Thrombocytopenia: Code(s): D69.6 - Thrombocytopenia, unspecified (10) RBBB with left anterior fascicular block: Onset Date: ~08/08/25 Code(s): I45.2 - Bifascicular block (11) Senile purpura: Code(s): D69.2 - Other nonthrombocytopenic purpura (12) Diastolic dysfunction: Code(s): I51.89 - Other ill-defined heart diseases (13) Premature atrial complexes: Code(s): I49.1 - Atrial premature depolarization (14) Parotid mass: Code(s): K11.8 - Other diseases of salivary glands Plan . Orders: Orders AMB Vision Screening Today Z00.00 - Encounter for general adult medical examination without abnormal findings AMB Hemoglobin A1c Today Z00.00 - Encounter for general adult medical examination without abnormal findings Complete Blood Count no Diff Today D69.6 - Thrombocytopenia, unspecified, Z00.00 - Encounter for general adult medical examination without abnormal findings, Z85.46 - Personal history of malignant neoplasm of prostate Lipid Panel Today D69.6 - Thrombocytopenia, unspecified, Z00.00 - Encounter for general adult medical examination without abnormal findings, Z85.46 - Personal history of malignant neoplasm of prostate Vitamin B12 and Folate Today D69.6 - Thrombocytopenia, unspecified, Z00.00 - Encounter for general adult medical examination without abnormal findings, Z85.46 - Personal history of malignant neoplasm of prostate Vitamin D 25-OH Total Today D69.6 - Thrombocytopenia, unspecified, Z00.00 - Encounter for general adult medical examination without abnormal findings, Z85.46 - Personal history of malignant neoplasm of prostate Prostate Specific Antigen Scr Today Z85.46 - Personal history of malignant neoplasm of prostate Comprehensive Met. Panel Today D69.6 - Thrombocytopenia, unspecified, Z00.00 - Encounter for general adult medical examination without abnormal findings, Z85.46 - Personal history of malignant neoplasm of prostate Microalbumin, Random (w Creat) Today D69.6 - Thrombocytopenia, unspecified, Z00.00 - Encounter for general adult medical examination without abnormal findings, Z85.46 - Personal history of malignant neoplasm of prostate TSH reflex Free T4 Today D69.6 - Thrombocytopenia, unspecified, Z00.00 - Encounter for general adult medical examination without abnormal findings, Z85.46 - Personal history of malignant neoplasm of prostate Influenza [id number] Immunization Today Z23 - Encounter for immunization Medications: New Fluarix [id number] (PF) (flu vac ts (6mos up)-PF) 0.5 mL IM ONCE 0.5 mL 0RF NS Z23 - Encounter for immunization Patient Instructions: Health screenings for men You should visit your health care provider regularly, even if you feel healthy. The purpose of these visits is to: Screen for medical issues Assess your risk for future medical problems Encourage a healthy lifestyle Update vaccinations and other preventive care services Help you get to know your provider in case of an illness Information Even if you feel fine, you should still see your provider for regular checkups. These visits can help you avoid problems in the future. For example, the only way to find out if you have high blood pressure is to have it checked regularly. High blood sugar and high cholesterol level also may not have any symptoms in the early stages. Simple blood tests can check for these conditions. There are specific times when you should see your provider or receive specific health screenings. The [place] Preventive Services Task Force publishes a list of recommended screenings. Below are screening guidelines for men ages 40 to 64. BLOOD PRESSURE SCREENING Have your blood pressure checked at least once every year. Watch for blood pressure screenings in your area. Ask your provider if you can stop in to have your blood pressure checked. Ask your provider if you need your blood pressure checked more often if: You have diabetes, heart disease, kidney problems, or are overweight or have certain other health conditions You have a first-degree relative with high blood pressure You are Black Your blood pressure top number is from 120 to 129 mm Hg, or the bottom number is from 70 to 79 mm Hg If the top number is 130 mm Hg or greater or the bottom number is 80 mm Hg or greater, this is considered stage 1 hypertension. Schedule an appointment with your provider to learn how you can lower your blood pressure. Effects of age on blood pressure CHOLESTEROL SCREENING Cholesterol screening should begin at age 35 for men with no known risk factors for coronary heart disease. Repeat cholesterol screening should take place: Every 5 years for men with normal cholesterol levels More often if changes occur in lifestyle (including weight gain and diet) More often if you have diabetes, heart disease, kidney problems, or certain other conditions COLORECTAL CANCER SCREENING If you are under age 45, talk to your provider about getting screened. You may need to be screened if you have a strong family history of colon cancer or polyps. Screening may also be considered if you have risk factors such as a history of inflammatory bowel disease or polyps. If you are age 45 to 75, you should be screened for colorectal cancer. There are several screening tests available: A stool-based fecal occult blood (gFOBT) or fecal immunochemical test (FIT) every year A stool sDNA test every 1 to 3 years Flexible sigmoidoscopy every 5 years or every 10 years with stool testing FIT done every year CT colonography (virtual colonoscopy) every 5 years Colonoscopy every 10 years You may need a colonoscopy more often if you have risk factors for colorectal cancer, such as: Ulcerative colitis A personal or family history of colorectal cancer A history of growths in your colon called adenomatous polyps DENTAL EXAM Go to the dentist once or twice every year for an exam and cleaning. Your dentist will evaluate if you have a need for more frequent visits. DIABETES SCREENING All adults who do not have risk factors for diabetes should be screened starting at age 35 and repeated every 3 years. If you have other risk factors for diabetes, such as a first degree relative with diabetes, overweight or obesity, high blood pressure, prediabetes, or a history of heart disease, you may be tested more often. If you are overweight and have other risk factors, such as high blood pressure and are planning to become , screening is recommended. EYE EXAM Have an eye exam every 2 to 4 years ages 40 to 54 and every 1 to 3 years ages 55 to 64. Your provider may recommend more frequent eye exams if you have vision problems or glaucoma risk. Have an eye exam that includes an examination of your retina (back of your eye) at least every year if you have diabetes. IMMUNIZATIONS Commonly needed vaccines include: Flu shot: get one every year COVID-19 vaccine: ask your provider what is best for you Tetanus-diphtheria and acellular pertussis (Tdap) vaccine: have as one of your tetanus-diphtheria vaccines if you did not receive it as an adolescent Tetanus-diphtheria: have a booster (or Tdap) every 10 years Varicella vaccine: receive 2 doses if you never had chickenpox or the varicella vaccine and were born in 1979 or after Hepatitis B vaccine: receive 2, 3, or 4 doses, depending on your exact circumstances, if you did not receive these as a child or adolescent, until age 59 Shingles (herpes zoster) vaccine: at or after age 50 Ask your provider if you should receive other immunizations, especially if you have certain medical conditions, such as diabetes or are at increased risk for some diseases such as pneumonia. INFECTIOUS DISEASE SCREENING Screening for hepatitis C: all adults ages 18 to 79 should get a one-time test for hepatitis C. Screening for human immunodeficiency virus (HIV): all people ages 15 to 65 should get a one-time test for HIV. Depending on your lifestyle and medical history, you may need to be screened for infections such as syphilis, chlamydia, and other infections. LUNG CANCER SCREENING You should have an annual screening for lung cancer with low-dose computed tomography (LDCT) if: You are age 50 to 80 years AND You have a 20 pack-year smoking history AND You currently smoke or have quit within the past 15 years OSTEOPOROSIS SCREENING If you are age 50 to 64 and have risk factors for osteoporosis, you should discuss screening with your provider. Risk factors can include long-term steroid use, low body weight, smoking, heavy alcohol use, having a fracture after age 50, or a family history of hip fracture or osteoporosis. Osteoporosis PHYSICAL EXAM All adults should visit their provider from time to time, even if they are healthy. The purpose of these visits is to: Screen for diseases Assess risk of future medical problems Encourage a healthy lifestyle Update vaccinations and other preventive care services Maintain a relationship with a provider in case of an illness Your height, weight, and body mass index (BMI) should be checked at every exam. During your exam, your provider may ask you about: Depression and anxiety Diet and exercise Alcohol and tobacco use Safety, such as use of seat belts and smoke detectors Your medicines and risk for interactions PROSTATE CANCER SCREENING If you're 55 through 69 years old, before having the test, talk to your provider about the pros and cons of having a PSA test. Ask about: Whether screening decreases your chance of dying from prostate cancer. Whether there is any harm from prostate cancer screening, such as side effects from testing or overtreatment of cancer when discovered. Whether you have a higher risk of prostate cancer than others. If you are age 55 or younger, screening is not generally recommended. You should talk with your provider about if you have a higher risk for prostate cancer. Risk factors include: Having a family history of prostate cancer (especially a brother or father) Being If you choose to be tested, the PSA blood test is repeated over time (yearly or less often), though the best frequency is not known. Prostate examinations are no longer routinely done on men with no symptoms. Prostate cancer SKIN EXAM Your provider may check your skin for signs of skin cancer, especially if you're at high risk. People at high risk include those who have had skin cancer before, have close relatives with skin cancer, or have a weakened immune system. TESTICULAR EXAM The US Preventive Services Task Force (USPSTF) now recommends against performing testicular self-exams. Doing testicular self-exams has been shown to have little to no benefit. Quality Reporting (2019) Adult ([facility] 138/10/07/68) Smoking risk assessment performed?: Yes Patient Tobacco Use Status: Former Tobacco user Depression screening performed: Yes Screen Results: Yes Negative screen Systolic BP not done?: No Diastolic BP not done?: No BMI screening not done: No Sexual Activity Screening ([facility] 153) Sexually active?: Yes Immunizations ([facility] 147, 117) Annual Influenza Vaccine: Yes Measles Antibody Test: No Mumps Antibody Test: No Rubella Antibody Test: No Varicella Antibody Test: No Anti Hepatitis A IgG Antigen test: No Anti Hepatitis B Virus Surface Ab test: No Fall Risk Screening ([facility] 139) Last assessed Fall Risk: 08/08/25 Fall risk assessment: No Falls in past year Dementia Assessment ([facility] 149) Cognitive assessment recorded: Yes Assessment of cognition with standardized tool: Yes Depression/Bipolar (159/160/161/177) PHQ-9: Total score: 0 Ophthalmol:Cataracts Visual Acuity (133) Visual acuity exam performed: Yes (see results) Coding Level of Care Code Medicare Subsequent (G0439) Est Pt Level 4 (15412) Diagnoses Encounter for subsequent annual wellness visit (AWV) in Medicare patient Z00.00 History of prostate cancer Z85.46 ACP (advance care planning) Z71.89 Immunization counseling Z71.85 Influenza vaccination administered at current visit Z23 Herpes zoster vaccination declined Z28.21 DNR (do not resuscitate) Z66 Laboratory exam ordered as part of routine general medical examination Z00.00 Thrombocytopenia D69.6 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 Diastolic dysfunction I51.89 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
--- OUTSIDE RECORDS SUMMARY | 2025-08-08 10:24 | XMS_ITS | Continuity of Care Document ---
Author Organization [place] - [facility], [facility] Address [address] [place] [address] Care Team Providers Care Glaze Handler Name Role Phone CECELIA KO Primary Care Provider CECELIA KO Primary Care Provider Assessment No assessment recorded. Plan of Treatment Reminders Order Date Submit Date Provider Last Modified By Organization Details Last Modified Time Details Appointments Establish ed 15 2025 01:30P M FLORA PETE Not available Not available Not available Lab None recorded. Referral None recorded. Procedures None recorded. Surgeries None recorded. Imaging None recorded. Medication Orders None recorded. Patient TargetsNo targets recorded. Patient InstructionsNo instructions recorded. Reason for Referral None Reported. Results Created Date Observation Date Name Description Value Unit Range Abnormal Flag Note LastModifiedBy Organization Detail LastModifiedTime 07/17/20 25 audio gram No observ ation record ed. BARCODE Not Available 2024 16:22:01 08/01/20 25 07/25/2025 MRI, head + neck + orbit s, w/wo contr ast [facility] Access ion Number : [id number] rFeddie t Name: Arnol rodrigues JR Julianne mathis Medica l Record Number : [id number] Date of : 1939 Date of Exam: 2024 Referr ing Physic elpidio: Pablito Jackson [facility] [address] [place] [address] Exam: MR Orbits , Face, Neck (C-/C+ ) CPT 35573 Room Descri ption: [place] Siem Espr 1.5 MRI Orbit, Face,N naty W+W/O Contra st INDICA TION: Other diseas es of saliva ry glands , , bilate ral paroti d [facility] Mass noted on CTA at . Possib le Warthi n ATTN. Soft tissue neck - TECHNI QUE: Multip lanar, multis equenc e MRI of the neck was perfor med before and after the admini strati on of intrav enous contra st. 8 mL of Elucir em was admini stered intrav enousl y. COMPAR JADON: Ultras ound of 2024, CTA Head and Neck of 2024. FINDIN GS: Visual ized intrac ranial struct ures and orbits : Normal . Visual ized parana leander sinuse s and mastoi ds: Unrema rkable . Mucosa l surfac es: Mucosa l surfac es appear normal and symmet triston, includ ing the nasoph arynx, oral cavity , oropha rynx, hypoph arynx, larynx , and trache a. No nodula rity or hypere nhance ment is seen. Superf icial and deep neck spaces : Normal . Cervic al lymph nodes: Normal in size and morpho logy. Saliva ry glands : The bilate ral subman dibula r glands are normal . Simila r to prior CTA, there are severa l simila r appear ing nonenh ancing lobula demi masses in the left paroti d gland, involv ing predom inantl y the superf icial lobe of the left paroti d gland, larges t measur ing approx imatel y 1.8 x 1.2 x 1.8 cm, demons tratin g signif icantl y T2 hyperi ntense signal with interm ediate to low T1 signal . Simila r appear ing lobula demi mass in the predom inantl y superf icial lobe of the right paroti d gland is also presen t measur ing 1.2 x 2.2 x 1.6 cm. In additi on, there may be T2 hyperi ntense signal along the most inferi or aspect of this mass withou t defini te enhanc ement which could repres ent layeri ng debris . Thyroi d gland: Normal MR appear ance. Vascul ar struct ures: Major cervic al flow voids are mainta ined. Upper chest: No signif icant abnorm ality of the visual ized lung apices and upper medias tinum. Bones: Marrow signal is preser summer. There is fusion of the C3-C4 verteb marisol with reverberatory furnace supervisor ior endpla te spurs and overal l mild to modera te narrow ing of the canal in conjun ction with ligame ntum flavum thicke kalen. There is fusion of the left C3-C4 facet joint. There is minima l estefania listhe sis of C2 on C3 and mild estefania listhe sis of C4 on C5 with associ ated endpla te change s. There is mild estefania listhe sis of C7 on T1 and T1 on T2. IMPRES JEMMA: Findin gs are most consis tent with bilate ral simila r appear ing nonenh ancing lobula demi predom inantl y T2 hypoin tense paroti d masses withou t suspic ious featur es. Differ ential consid eratio ns would includ e unusua l benign cystic masses versus atypic al veno-l ymphat ic malfor mation s, unlike ly given the lack of enhanc ement, versus unusua l malign ant lesion s which are also consid ered less likely given the lack of enhanc ement, althou gh not entire ly exclud ed. ENT consul tation and histop atholo gic correl ation would be needed for defini te diagno sis as clinic ally indica demi. WSN: [id number] Orderi ng Physic elpidio: Pablito Jackson onical ly Signed By: Dorothy [email or web address] [facility] ([facility]) [address] [place], [address], 08/03/2025 14:58:28 Result Notes None recorded. Problems Name Problem SNOMED Code Status Onset Date Resolution Date Notes Provider Name and Address Organization Details Recorded Time Mass of parotid gland 625263800 Active 2024 PABLITO WETZEL MD [address] [place] [address], [phone] , [facility] 09:57:01 Abnormal findings on diagnostic imaging of skull and head 821064423 Active 2024 PABLITO WETZEL MD [address] [facility], [address] [facility], [place], [address], [facility] [place] 5 09:57:27 Impacted cerumen of bilateral ears 4377571710197 108 Active 2024 PABLITO WETZEL MD [address] [facility], [facility], [place], [address], [facility] - [facility] [place] 5 10:00:59 Sensorineur al hearing loss of bilateral ears 891565672 Active 2024 BATSHEVA GERMAIN, AUD [address] [facility],[place] [address], [place], [address], [facility] [place] 13:17:46 Problem Notes None recorded. Procedures Surgical History Date Name Laterality Status Provider Name and Address Organization Details Recorded Time Comp Audio with Tymps - 64646 & 41372 completed BATSHEVA GERMAIN, AUD [address] [facility],[place] [address], [place], [address], [facility] - [facility] 07/17/2025 13:17:37 Cerumen removal without microscope bilat completed FLORA PETE [address] [facility],[place] [address], [place], [address], [facility] 07/03/2025 09:48:25 Imaging Results None recorded. Procedure Notes None recorded. Medical Equipment None Reported. Allergies No known drug allergies Medications Name Sig Start Date Stop Date Status Note LastModified by Organization Details LastModified Time cyanocobalamin (vit B-12) 1,000 mcg tablet TAKE ONE TABLET BY MOUTH EVERY DAY active Not Available Not Available No t Available aspirin 81 mg tablet,delayed release TAKE ONE TABLET BY MOUTH EVERY DAY active Not Available Not Available No t Available naproxen 500 mg tablet,delayed release TAKE ONE TABLET BY MOUTH TWICE A DAY NEEDED FOR PAIN active Not Available Not Available No t Available Vitals Date Recorded Body height Body mass index (BMI) Body weight Provider Name and Address Organization Details Last Updated DateTime 07/17/2025 182.88 cm 23.1 kg/m2 61790.7 g Zulma Acosta [facility] 07/17/2025 13:32:35 Social History None recorded. Functional Status None recorded. Mental Status None recorded. Family History Nothing Reported. Medical History Condition Response Arthritis Y Past Encounters Encounter ID Performer Location Encounter Start Date Encounter Closed Date Diagnosis/Indication Diagnosis SNOMED-CT Code Diagnosis ICD10 Code Diagnosis IMO Codes Diagnosis Note [id number] FLORA PETE [facility] [address] [address] 07/03/2025 09:22:39 07/03/2025 09:50:43 Impacted cerumen of bilateral ears 6725148930 272254 H61.23 317798 Mass of parotid gland 31 8550217 K11.8 517083 [id number] FLORA PETE [facility] [address] [address] 07/17/2025 13:05:33 07/17/2025 16:15:38 Sensorineural hearing loss of bilateral ears 910409401 H90.3 [id number] Right Ear:Normal hearing through 1K Hz sloping to a severe SNHL with excellent speech discrimina tion.Type A tympanogra m. Left Ear:Normal hearing through 1K Hz sloping to a severe SNHL with excellent speech discrimina tion.Type A tympanogra m. [id number] ARI FIGUEROA [facility] [address] [address] 07/17/2025 13:12:01 07/17/2025 13:49:02 Sensorineural hearing loss of bilateral ears 564981265 H90.3 [id number] Right Ear:Normal hearing through 1K Hz sloping to a severe SNHL with excellent speech discrimina tion.Type A tympanogra m.Left Ear:Normal hearing through 1K Hz sloping to a severe SNHL with excellent speech discrimina tion.Type A tympanogra m. Health Concerns Section Related Observation LastModified by Organization Detai ls LastModified Time None Recorded Concern Status LastModified by Organization Details LastModified Time None Recorded Payers Encounter Date Sequence Insurance Name Policy Number Policy Bains Covered Member ID Bains Member ID Guarantor Name 07/17/2025 1 [place] [employer] Adolfo Concepcion Jr [id number] Adolfo Concepcion Jr 07/17/2025 2 [employer] (MEDICARE SUPPLEMENT) [id number] Adolfo Concepcion [id number] Adolfo Concepcion Jr Notes Date Note Type Note Provider Name and Address Organization Details Recorded Time 07/17/2025 text/html ROS as noted in the HPI 85-year-old male presents for evaluation of his hearing. He denies any ear pain, ear drainage, recent ear infections, Q-tip use, or perceived hearing loss. His believes that his hearing has decreased as she has to repeat things to him frequently. The patient has not had a hearing test since 2011. ALAN SHOOK MD [address] [place] [address], [phone], [facility] 07/19/2025 09:03:28
--- OUTSIDE RECORDS SUMMARY | 2025-08-08 10:24 | XMS_ITS | Continuity of Care Document ---
Author Organization [place] - [facility], [facility] Address [address] [place] [address] Care Team Providers Care Surgical Lead Name Role Phone CECELIA KO Primary Care Provider [phone] CECELIA KO Primary Care Provider Assessment Encounter Date Assessment Date Assessment LastModified by Organization Details LastModified Time 06/12/2025 06/12/2025 Adolfo Concepcion Jr is an 85-year-old male with bilateral parotid masses. The patient has a history of imaging studies, including a CT angiogram and ultrasound, which demonstrated growths in the deeper parts of the parotid gland. Based on the patient's age and the bilateral nature of the masses, the provider suspects benign growths, possibly Warthin's tumors. However, further imaging is necessary to confirm the diagnosis and delineate the location of the masses. An MRI of the deep lobe of the parotid gland will be ordered to obtain better visualization of the masses. The imaging will be scheduled at [facility], located next door to the clinic. The provider discussed the likelihood of the masses being benign and the low probability of malignancy, given the bilateral presentation. The provider also noted that aggressive surgical intervention may not be warranted due to the patient's age and the absence of bothersome symptoms. Patient will use 3 drops of distilled vinegar twice weekly and we will arrange for cleaning followed by audiometric testing in the future FOLLOW-UP: The patient will be contacted via the patient portal once the MRI results are available. The provider encouraged the patient to set up the portal using his email for efficient communication. [email or web address] Not available 06/12/2025 10:01:25 Plan of Treatment Reminders Order Date Submit Date Provider Last Modified By Organization Details Last Modified Time Details Appointments Establish ed 15 2025 01:30P M FLORA PETE Not available Not available Not available Lab None recorded. Referral None recorded. Procedures None recorded. Surgeries None recorded. Imaging MRI, neck, w/wo contrast - bilateral parotid masses on ultrasoun d at [place]. Mass noted on CTA at BS..possi ble [facility] 2024 025 [email or web address] [facility] ([facility]), [address], [place], [address], 07/10/2025 12:33:22 Medication Orders None recorded. Patient TargetsNo targets recorded. Patient Instructions Encounter Date Encounter Id Patient Instructions Last Modified By Organization Details Last Modified Time 06/12/2025 [id number] - Set up a patient portal using email for communication regarding test results. - Schedule an MRI at [facility] to evaluate the deep lobe of the parotid gland. [email or web address] Not available 06/12/2025 09:59:25 Please note: Parts of this encounter note have been generated by AI based on audio conversation. Patient consent was required prior to utilizing this technology. Content review was required prior to finalizing the note. [email or web address] Not available 06/12/2025 09:59:25 Reason for Referral None Reported. Results Created Date Observation Date Name Description Value Unit Range Abnormal Flag Note LastModifiedBy Organization Detail LastModifiedTime 06/13/2001/17/2025 CT, neck, w/wo contr ast No observ ation record ed. [email or web address] Not Available 05/17 08:39:17 07/17/20 25 audio gram No observ ation record ed. BARCODE Not Available 2024 16:22:01 08/01/20 25 07/25/2025 MRI, head + neck + orbit s, w/wo contr ast [facility] Access ion Number : [id number] Name: Arnol ravi PINTO, Kedarsweetie mathis Medica l Record Number : [id number] Date of : 1939 Date of Exam: 2024 Referr ing Physic elpidio: Pablito Jackson [facility] [address] [facility] [place] [address] Exam: MR Orbits , Face, Neck (C-/C+ ) CPT 37945 Room Descri ption: [place] Siem Espr 1.5 MRI Orbit, Face,N naty W+W/O Contra st INDICA TION: Other diseas es of saliva ry glands , , bilate ral [facility] Mass noted on [facility] at [...] fusion of the C3-C4 verteb marisol with biodiesel technology manager ior endpla te spurs and overal l [...] sis as clinic ally indica demi. WSN: [id number] Orderi ng Physic elpidio: Pablito Jackson Electr onical ly Signed By: Dorothy [email or web address] [place] [address] [facility] ([facility]) [address], [place], [address], 08/03/2025 14:58:28 Result Notes None recorded. Problems Name Problem SNOMED Code Status Onset Date Resolution Date Notes Provider Name and Address Organization Details Recorded Time Mass of parotid gland 642244417 Active 2024 PABLITO WETZEL MD 100 [facility] [place], [facility] [place], [address], [facility] - [facility] [place] 5 09:57:01 Abnormal findings on diagnostic imaging of skull and head 532247400 Active 2024 PABLITO WETZEL MD 100 [facility],[address], [facility] [place], [address], [facility] - [facility] [place] 5 09:57:27 Impacted cerumen of bilateral ears 1979794560602 108 Active 2024 PABLITO WETZEL MD 100 [facility], E [facility], [facility] [place], [address], [facility] 5 10:00:59 Sensorineur al hearing loss of bilateral ears 542941693 Active 2024 BATSHEVA GERMAIN AUD 100 [facility],[address] [place] [address], [place], [address], [facility] 13:17:46 Problem Notes None recorded. Procedures Surgical History Date Name Laterality Status Provider Name and Address Organization Details Recorded Time Comp Audio with Tymps - 25227 & 54165 completed ARI FIGUEROA 100 [facility],[address], [address], [facility] - [facility] 07/17/2025 13:17:37 Cerumen removal without microscope bilat completed FLORA PETE 100 [facility],[address], [address], [facility] - [facility] 07/03/2025 09:48:25 Imaging Results None recorded. Procedure [...] and Address Organization Details Last Updated DateTime 06/12/2025 182.88 cm 23.1 kg/m2 54789.7 g NOHEMI YONG [facility] 06/12/2025 09:31:09 Social History None recorded. Functional Status None recorded. Mental Status None recorded. Family History Nothing Reported. Medical History Condition Response Arthritis Y Past Encounters Encounter ID Performer Location Encounter Start Date Encounter Closed Date Diagnosis/Indication Diagnosis SNOMED-CT Code Diagnosis ICD10 Code Diagnosis IMO Codes Diagnosis Note [id number] PABLITO DODD MD [facility] of [address] [address] 06/12/2025 09:15:02 06/12/2025 10:00:18 Mass of parotid gland 723216604 K11.8 117106 Abnormal f indings on diagnostic imaging of skull and head 390479617 R93.0 992693 Impacted c erumen of bilateral ears 9192265195 295617 H61.23 420058 Health Concerns Section Related Observation LastModified by Organization Detai ls LastModified Time None Recorded Concern Status LastModified by Organization Details LastModified Time None Recorded Payers Encounter Date Sequence Insurance Name Policy Number Policy Bains Covered Member ID Bains Member ID Guarantor Name 06/12/2025 1 [place] [employer] Adolfo Concepcion Jr [id number] Adolfo Concepcion Jr 06/12/2025 2 [employer] (MEDICARE SUPPLEMENT) [id number] Adolfo Concepcion [id number] Adolfo Concepcion Jr Notes Date Note Type Note Provider Name and Address Organization Details Recorded Time 06/12/2025 text/html ROS as noted in the HPI Adolfo Concepcion Jr is an 85-year-old male who presents for evaluation of a lump behind his right ear. The patient reports that the lump was first noticed during a hospitalization in January or February, where he was evaluated for a suspected heart attack, which was ultimately ruled out. During the hospitalization, imaging studies were performed, including a CT angiogram, which demonstrated bilateral parotid masses. The patient subsequently underwent an ultrasound on 03/16, which confirmed the presence of two growths in the deeper parts of the parotid gland. The patient denies feeling any discrete lumps or masses under his jaw. 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 PABLITO ZEPEDA MD [address] [place] [address], [address], [facility] - [facility] 06/12/2025 10:02:16
--- OUTSIDE RECORDS SUMMARY | 2025-08-08 10:24 | XMS_ITS | Continuity of Care Document ---
Author Organization [place] - [facility], [facility] Address [address] [place] [address] Care Team Providers Care Records Technician Name Role Phone CECELIA KO Primary Care Provider CECELIA KO Primary Care Provider [phone] Assessment Encounter Date Assessment Date Assessment LastModified by Organization Details LastModified Time 07/17/2025 07/17/2025 85-year-old male presents for evaluation of his hearing. On examination both tympanic membranes are intact and the middle ear spaces appear well aerated. Audiometric testing today demonstrates normal hearing through 1K Hz sloping to a severe SNHL, type A tympanogram, and excellent speech discrimination bilaterally. Discussed that the patient is a good candidate for bilateral hearing amplification based on his level of hearing loss. At this time the patient is not ready to pursue hearing amplification as he does not perceive significant hearing loss. We discussed that he can call our office if he wishes to pursue hearing amplification over the next 6 months. I recommend repeat cerumen removal in 6 months and repeat audiometric testing in 1-2 years. All questions were answered. [email or web address] Not available 07/17/2025 13:58:06 Plan of Treatment Reminders Order Date Submit Date Provider Last Modified By Organization Details Last Modified Time Details Appointments Establish ed 15 2025 01:30P FLORA ROA Not available Not available Not available Lab None recorded. Referral None recorded. Procedures None recorded. Surgeries None recorded. Imaging None recorded. Medication Orders None recorded. Patient TargetsNo targets recorded. Patient InstructionsNo instructions recorded. Reason for Referral None Reported. Results Created Date Observation Date Name Description Value Unit Range Abnormal Flag Note LastModifiedBy Organization Detail LastModifiedTime 07/17/20 audio gram No observ ation record ed. BARCODE Not Available 2024 16:22:01 08/01/20 25 07/25/2025 MRI, head + neck + orbit s, w/wo contr ast [facility] Access ion Number : [id number] chelly Name: Julianne Enamorado JR Record Number : [id number] Date of : 1939 Date of Exam: 2024 Referr ing Physic elpidio: [place] , P[facility]ito [facility] [address] [facility] [place] [address] Exam: MR Orbits , Face, Neck (C-/C+ ) CPT 49320 Room Descri ption: [place] Siem Espr 1.5 MRI Orbit, Face,N naty W+W/O Contra st INDICA TION: Other diseas es of saliva ry glands , , bilate ral paroti d masses on ultras ound at [facility] e. Mass noted on CTA at . [...] fusion of the C3-C4 verteb marisol with hatch tender ior endpla te spurs and overal l [...] defini te diagno sis as clinic ally roselyn simms. WSN: [id number] Orderi ng Physic elpidio: Pablito Jackson onical ly Signed By: Dorothy [email or web address] [facility] ([facility]) [address], [place], [address], 08/03/2025 14:58:28 Result Notes None recorded. Problems Name Problem SNOMED Code Status Onset Date Resolution Date Notes Provider Name and Address Organization Details Recorded Time Mass of parotid gland 902249740 Active 2024 PABLITO WETZEL MD 100 [facility],[address] [facility], [place], [address], [facility] - [facility] 5 09:57:01 Abnormal findings on diagnostic imaging of skull and head 378265685 Active 2024 PABLITO WETZEL MD 100 [facility],[address] [facility], [place], [address], [facility] - [facility] [place] 5 09:57:27 Impacted cerumen of bilateral ears 3870904824446 108 Active 2024 PABLITO WETZEL MD 100 [facility], E [facility], [place], [address], [facility] - [facility] [place] 5 10:00:59 Sensorineur al hearing loss of bilateral ears 315061337 Active 2024 BATSHEVA GERMAIN, AUD 100 [facility],[address] [facility], [place], [address], [facility] - [facility] [place] 5 13:17:46 Problem Notes None recorded. Procedures Surgical History Date Name Laterality Status Provider Name and Address Organization Details Recorded Time Comp Audio with Tymps - 82751 & 22559 completed BATSHEVA GERMAIN, AUD 100 [facility], [place], [address], [facility] - [facility] [place] 07/17/2025 13:17:37 5 Cerumen removal without microscope bilat completed FLORA PETE [address] [place] [address], [address], [facility] - [facility] 07/03/2025 09:48:25 Imaging Results None recorded. [...] Updated DateTime 07/17/2025 182.88 cm 23.1 kg/m2 37789.7 g Zulma Dwod [place] - [facility] 07/17/2025 13:32:35 Social History None recorded. Functional Status None recorded. Mental Status None recorded. Family History Nothing Reported. Medical History Condition Response Arthritis Y Past Encounters Encounter ID Performer Location Encounter Start Date Encounter Closed Date Diagnosis/Indication Diagnosis SNOMED-CT Code Diagnosis ICD10 Code Diagnosis IMO Codes Diagnosis Note [id number] FLORA PETE [facility] of [address] [address] 07/03/2025 09:22:39 07/03/2025 09:50:43 Impacted cerumen of bilateral ears 1870845527 364302 H61.23 175975 Mass of parotid gland 31 3047548 K11.8 126845 [id number] FLORA PETE [facility] of [address] [address] 07/17/2025 13:05:33 07/17/2025 16:15:38 Sensorineural hearing loss of bilateral ears 295964640 H90.3 [id number] Right Ear:Normal hearing through 1K Hz sloping to a severe SNHL with excellent speech discrimina tion.Type A tympanogra m. Left Ear:Normal hearing through 1K Hz sloping to a severe SNHL with excellent speech discrimina tion.Type A tympanogra m. [id number] ARI FIGUEROA [facility] of [address] [address] 07/17/2025 13:12:01 07/17/2025 13:49:02 Sensorineural hearing loss of bilateral ears 939121619 H90.3 [id number] Right Ear:Normal hearing through 1K Hz sloping [...] ID Guarantor Name 07/17/2025 1 [place]IC[place] B-[place] [employer] Adolfo Ambroseravi Hutchison [id number] Adolfo Concepcion Jr 07/17/2025 2 [employer] (MEDICARE SUPPLEMENT) [id number] Adolfo Brandtevelia [id number] Adolfo Brandtevelia Hutchison Notes Date Note Type Note Provider Name [...] hearing test since 2011. ALAN SHOOK MD [address] [place] [address], [address], [facility] - [facility] 07/19/2025 09:03:28
--- OUTSIDE RECORDS SUMMARY | 2025-08-08 10:24 | XMS_ITS | Data Portability ---
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 The imaging will be scheduled at [place], located next door to the clinic. The [...] portal using his email for efficient communication. [email or web address] Not available 06/12/2025 10:01:25 07/03/2025 07/03/2025 85-year-old male presents for evaluation of excessive cerumen in both ears. On examination there are bilateral cerumen impactions, which were removed entirely today. The patient tolerated the procedure well. Bilateral TMs are intact with well-aerated middle ear spaces. Recommend applying 3 drops of distilled white vinegar or mineral oil into ear ear twice weekly to minimize cerumen build up. I will schedule the patient for audiometric testing within the next 3-6 months since he has not had any in over 30 years, and I will follow up with him regarding the results after. I have also provided the patient with the phone number for [facility] and asked that he call them to schedule his neck MRI. The patient understands that Dr. Zepeda will reach out to him regarding the results when they are received. Not available 07/03/2025 10:04:15 07/17/2025 07/17/2025 85-year-old male presents for evaluation [...] in 1-2 years. All questions were answered. [email or web address] Not available 07/17/2025 13:58:06 Plan of Treatment Reminders Order Date Submit Date Provider Last Modified By Organization Details Last Modified Time Details Appointments Establish ed 15 2025 01:30P FLORA ROA Not available Not available Not available Lab None recorded. Referral None recorded. Procedures None recorded. Surgeries None recorded. Imaging MRI, neck, w/wo contrast - bilateral parotid masses on ultrasoun d at [place]. Mass noted on CTA at BS..possi ble [facility] 2024 025 [email or web address] [facility] ([facility]), [address] [facility], [place], [address], 07/10/2025 12:33:22 Medication Orders None recorded. Patient TargetsNo targets recorded. Patient Instructions Encounter Date Encounter Id Patient Instructions Last Modified By Organization Details Last Modified Time 06/12/2025 [id number] - Set up a patient portal using email for communication regarding test results. - Schedule an MRI at [facility] to evaluate the deep lobe of [...] contr ast No observ ation record ed. [email or web address] Not Available 05/17 08:39:17 07/17/20 audio gram No observ ation record ed. BARCODE Not Available 2024 16:22:01 08/01/20 25 07/25/2025 MRI, head + neck + orbit s, w/wo contr ast [facility] Access ion Number : [id number] spaulding Name: Arnol rodrigues JR, Julianne morgan Record Number : [id number] Date of : 1939 Date of Exam: 2024 Referr ing Physic elpidio: Pablito Jackson Ear Nose [address] [place] [address] Exam: MR Orbits , Face, Neck (C-/C+ ) CPT 02261 Room Descri ption: [place] [facility] 1.5 MRI Orbit, Face,N naty W+W/O Contra st INDICA TION: Other diseas es of saliva ry glands , , bilate ral paroti d masses on ultras [place]und at [place]. Mass noted on CTA at BS. Possib le War[place] n ATTN. Soft tissue [...] fusion of the C3-C4 verteb marisol with human services supervisor ior endpla te spurs and overal [...] sis as clinic ally indica demi. WSN: [id number] Orderi ng Physic elpidio: Pablito Jackson Electr onical ly Signed By: Dorothy [email or web address] [place] [address] [facility] ([facility]) [address] [facility], [place], [address], 08/03/2025 14:58:28 Result Notes Documentation Provider Name and Address Organization Details Recorded Time Mri, Head + Neck + Orbits, W/wo Contrast : [facility] Accession Number: [id number] Patient Name: Adolfo Concepcion JR Date of : 1940 Date of Exam: 07-25-2025 Referring Physician: Pablito Zepeda Ear Nose [address] [place] [address] Exam: MR Orbits, Face, Neck (C-/C+) CPT 77866 Room Description: [facility] 1.5 MRI Orbit,Face,Neck W+W/O Contrast INDICATION: Other diseases of salivary glands, , bilateral parotid masses on ultrasound at [place]. Mass noted on CTA at . Possible [place] ATTN. Soft tissue neck - TECHNIQUE: Multiplanar, multisequence MRI of the neck was performed before and after the administration of intravenous contrast. 8 mL of Elucirem was administered intravenously. COMPARISON: Ultrasound of 03/16/2025, CTA Head and Neck of 01/17/2025. FINDINGS: Visualized intracranial structures and orbits: Normal. Visualized paranasal sinuses and mastoids: Unremarkable. Mucosal surfaces: Mucosal surfaces appear normal and symmetric, including the nasopharynx, oral cavity, oropharynx, hypopharynx, larynx, and trachea. No nodularity or hyperenhancement is seen. Superficial and deep neck spaces: Normal. Cervical lymph nodes: Normal in size and morphology. Salivary glands: The bilateral submandibular glands are normal. Similar to prior CTA, there are several similar appearing nonenhancing lobulated masses in the left parotid gland, involving predominantly the superficial lobe of the left parotid gland, largest measuring approximately 1.8 x 1.2 x 1.8 cm, demonstrating significantly T2 hyperintense signal with intermediate to low T1 signal. Similar appearing lobulated mass in the predominantly superficial lobe of the right parotid gland is also present measuring 1.2 x 2.2 x 1.6 cm. In addition, there may be T2 hyperintense signal along the most inferior aspect of this mass without definite enhancement which could represent layering debris. Thyroid gland: Normal MR appearance. Vascular structures: Major cervical flow voids are maintained. Upper chest: No significant abnormality of the visualized lung apices and upper mediastinum. Bones: Marrow signal is preserved. There is fusion of the C3-C4 vertebrae with posterior endplate spurs and overall mild to moderate narrowing of the canal in conjunction with ligamentum flavum thickening. There is fusion of the left C3-C4 facet joint. There is minimal anterolisthesis of C2 on C3 and mild anterolisthesis of C4 on C5 with associated endplate changes. There is mild anterolisthesis of C7 on T1 and T1 on T2. 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 Differential considerations would include unusual benign cystic masses versus atypical veno-lymphatic malformations, unlikely given the lack of enhancement, versus unusual malignant lesions which are also considered less likely given the lack of enhancement, although not entirely excluded. ENT consultation and histopathologic correlation would be needed for definite diagnosis as clinically indicated. WSN: [id number] Ordering Physician: Pablito Zepeda Electronically Signed By: [facility] [place] 08/03/2025 14:58:28 Problems Name Problem SNOMED Code Status Onset Date Resolution Date Notes Provider Name and Address Organization Details Recorded Time Mass of parotid gland 089998293 Active 2024 PABLITO WETZEL MD [address] [facility],[address] [facility], [place], [address], [facility] - [facility] 09:57:01 Abnormal findings on diagnostic imaging of skull and head 037414357 Active 2024 PABLITO WETZEL MD 100 [facility],[address], [place], [address], [facility] - [facility] 09:57:27 Impacted cerumen of bilateral ears 2099567126403 108 Active 2024 PABLITO WETZEL MD [address] [facility], [place], [address], [facility] - [facility] 10:00:59 Sensorineur al hearing loss of bilateral ears 078516522 Active 2024 BATSHEVABREA GERMAIN, AUD [address] [facility], [place], [address], [facility] - [facility] 13:17:46 Problem Notes None recorded. Procedures Surgical History Date Name Laterality Status Provider Name and Address Organization Details Recorded Time Comp Audio with Tymps - 52293 & 05837 completed BATSHEVA GERMAIN, AUD [address] [facility] [address], [place], [address], [facility] 07/17/2025 13:17:37 Cerumen removal without microscope bilat completed FLORA PETE [address] [place], [place], [address], [facility] - [facility] 07/03/2025 09:48:25 Imaging Results None recorded. Procedure [...] Updated DateTime 06/12/2025 182.88 cm 23.1 kg/m2 19952.7 g [place] - [facility] 06/12/2025 09:31:09 Date Recorded Body height Body mass index (BMI) Body weight Provider Name and Address Organization Details Last Updated DateTime 07/03/2025 182.88 cm 23.1 kg/m2 09481.7 g [address] Preciado [facility] 07/03/2025 09:28:10 Date Recorded Body height Body mass index (BMI) Body weight Provider Name and Address Organization Details Last Updated DateTime 07/17/2025 182.88 cm 23.1 kg/m2 52943.[address] [facility] 07/17/2025 13:32:35 Social History None recorded. Functional Status None recorded. Mental Status None recorded. Family History Nothing Reported. Medical History Condition Response Arthritis Y Past Encounters Encounter ID Performer Location Encounter Start Date Encounter Closed Date Diagnosis/Indication Diagnosis SNOMED-CT Code Diagnosis ICD10 Code Diagnosis IMO Codes Diagnosis Note [id number] PABLITO DODD MD [facility] of [address] [address] 06/12/2025 09:15:02 06/12/2025 10:00:18 Mass of parotid gland 969898460 K11.8 004341 Abnormal f indings on diagnostic imaging of skull and head 229974278 R93.0 558912 Impacted c erumen of bilateral ears 8953709139 945295 H61.23 442480 [id number] FLORA PETE [facility] of [address] [address] 07/03/2025 09:22:39 07/03/2025 09:50:43 Impacted cerumen of bilateral ears 5323705128 790850 H61.23 406751 Mass of parotid gland 31 2269503 K11.8 459994 [id number] FLORA PETE [facility] of [address] [address] 07/17/2025 13:05:33 07/17/2025 16:15:38 Sensorineural hearing loss of bilateral ears 562918261 H90.3 86258245 Right Ear:Normal hearing through 1K Hz sloping to a severe SNHL with excellent speech discrimina tion.Type A tympanogra m. Left Ear:Normal hearing through 1K Hz sloping to a severe SNHL with excellent speech discrimina tion.Type A tympanogra m. [id number] ARI FIGUEROA [facility] of [address] [address] 07/17/2025 13:12:01 07/17/2025 13:49:02 Sensorineural hearing loss of bilateral ears 950375858 H90.3 65374924 Right Ear:Normal hearing through 1K Hz sloping to a severe SNHL with excellent speech discrimina tion.Type A tympanogra m.Left Ear:Normal hearing through 1K Hz sloping to a severe SNHL with excellent speech discrimina tion.Type A tympanogra m. Health Concerns Section Related Observation LastModified by Organization Detai ls LastModified Time None Recorded Concern Status LastModified by Organization Details LastModified Time None Recorded Advance Directives Directive None Recorded Payers Insurance Date Sequence Insurance Name Policy Number Policy Bains Covered Member ID Bains Member ID Guarantor Name 06/12/2025 2 AARP (MEDICARE SUPPLEMENT) Adolfo Concepcion [id number] Adolfo Concepcion Jr 07/16/2025 1 [place] B-[place] [employer] Adolfo Concepcion Jr [id number] Adolfo Concepcion Jr 07/16/2025 2 [employer] (MEDICARE SUPPLEMENT) [id number] Adolfo Concepcion [id number] Adolfo Concepcion Jr Notes Date Note Type Note Provider Name and Address Organization Details Recorded Time 06/12/2025 text/html ROS as noted in the [facility] Adolfo Concepcion Jr is an 85-year-old male [...] the handicapped, and 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 PABLITO ZEPEDA MD [address] [place] [address], [address], [facility] 06/12/2025 10:02:16 07/03/2025 text/html ROS as noted in the [facility] 85-year-old male presents for evaluation of excessive cerumen in both ears. He denies any ear pain, ear drainage, recent ear infections, Q-tip use, or hearing changes. His believes that his hearing has decreased. The patient has not had a hearing test in over 30 years. The patient has also not received a call to schedule his neck MRI, which was ordered by Dr. Zepeda due to findings of growths in the deeper parts of the parotid gland on CT angiogram and ultrasound obtained during a hospital stay. Robb Michael, [address] [place] [address], [address], [facility] 07/03/2025 16:59:30 07/17/2025 text/html ROS as noted in the [facility] 85-year-old male presents for evaluation of his hearing. He denies any ear pain, ear drainage, recent ear infections, Q-tip use, or perceived hearing loss. His believes that his hearing has decreased as she has to repeat things to him frequently. The patient has not had a hearing test since 2011. ALAN SHOOK MD [address] [place] [address], [place], [address], [place] - [facility] 07/19/2025 09:03:28
--- OUTSIDE RECORDS SUMMARY | 2025-08-08 10:24 | XMS_ITS | Continuity of Care Document ---
Author Organization [place] - [facility], [facility] Address [address] [place] [address] Care Team Providers Care Entry Specialist Name Role Phone CECELIA KO Primary Care Provider [phone] CECELIA KO Primary Care Provider Assessment Encounter Date Assessment Date Assessment LastModified by Organization Details LastModified Time 07/03/2025 07/03/2025 85-year-old male presents for evaluation [...] neck MRI. The patient understands that Dr. Prince will reach out to him regarding the results when they are received. Not available 07/03/2025 10:04:15 Plan of Treatment Reminders Order Date Submit [...] contr ast No observ ation record ed. [email or web address] Not Available 05/17 08:39:17 07/17/20 audio gram No observ ation record ed. BARCODE Not Available 2024 16:22:01 08/01/20 25 07/25/2025 MRI, head + neck + orbit s, w/wo contr ast [facility] Access ion Number : [id number] Patien t Name: Julianne Enamorado JR Record Number : [id number] Date of : 1939 Date of Exam: 2024 Referr ing Physic elpidio: [place] , Pablito Ear Nose [address] [place] [address] Exam: MR Orbits , Face, Neck (C-/C+ ) CPT 74979 Room Descri ption: [place] [facility] 1.5 MRI Orbit, Face,N naty W+W/O Contra st INDICA TION: Other diseas es of saliva ry glands , , bilate ral paroti d masses on ultras ound at [facility] e. Mass noted on CTA at . [...] fusion of the C3-C4 verteb marisol with evaporator operator molasses ior endpla te spurs and overal l [...] sis as clinic ally roselyn simms. WSN: [id number] Orderi ng Physic elpidio: [place] , Pablito Martínez onical ly Signed By: Dorothy [email or web address] [facility] ([facility]) [address] [facility], [place], [address], 08/03/2025 14:58:28 Result Notes None recorded. Problems Name Problem SNOMED Code Status Onset Date Resolution Date Notes Provider Name and Address Organization Details Recorded Time Mass of parotid gland 284227654 Active 2024 PABLITO WETZEL MD [address] [address], [place], [address], [facility] - [facility] 5 09:57:01 Abnormal findings on diagnostic imaging of skull and head 320084309 Active 2024 PABLITO WETZEL MD [address] [address], [place], [address], [facility] - [facility] 5 09:57:27 Impacted cerumen of bilateral ears 1236726461752 108 Active 2024 PABLITO WETZEL MD [address] [address], [place], [address], [facility] - [facility] 5 10:00:59 Sensorineur al hearing loss of bilateral ears 473390117 Active 2024 ARI FIGUEROA [address] [address], [facility] [place], [address], [facility] - [facility] 5 13:17:46 Problem Notes None recorded. Procedures Surgical History Date Name Laterality Status Provider Name and Address Organization Details Recorded Time Comp Audio with Tymps - 68693 & 14684 completed ARI FIGUEROA [address] [address], [place], [address], [facility] 07/17/2025 13:17:37 Cerumen removal without microscope bilat completed FLORA PETE 100 [facility],[address], [address], [facility] - [facility] 07/03/2025 09:48:25 Imaging Results None recorded. [...] Updated DateTime 07/03/2025 182.88 cm 23.1 kg/m2 44656.7 g Josephine Preciado [facility] 07/03/2025 09:28:10 Social History None recorded. Functional Status None recorded. Mental Status None recorded. Family History Nothing Reported. Medical History Condition Response Arthritis Y Past Encounters Encounter ID Performer Location Encounter Start Date Encounter Closed Date Diagnosis/Indication Diagnosis SNOMED-CT Code Diagnosis ICD10 Code Diagnosis IMO Codes Diagnosis Note [id number] PABLITO DODD MD [facility] of [address] [address] 06/12/2025 09:15:02 06/12/2025 10:00:18 Mass of parotid gland 065201848 K11.8 984261 Abnormal f indings on diagnostic imaging of skull and head 898845879 R93.0 569292 Impacted c erumen of bilateral ears 2426691500 601478 H61.23 705942 [id number] FLORA PETE [facility] of [address] [place] [address] 07/03/2025 09:22:39 07/03/2025 09:50:43 Impacted cerumen of bilateral ears 9007503729 278187 H61.23 517121 Mass of parotid gland 31 1173017 K11.8 497440 Health Concerns Section Related Observation LastModified by Organization Detai ls LastModified Time None Recorded Concern Status LastModified by Organization Details LastModified Time None Recorded Payers Encounter Date Sequence Insurance Name Policy Number Policy Bains Covered Member ID Bains Member ID Guarantor Name 07/03/2025 1 [place]IC[place] B-[place]: [employer] Adolfo Vasquez Carlene Hutchison [id number] Adolfo Concepcion Jr 07/03/2025 2 [employer] (MEDICARE SUPPLEMENT) [id number] Adolfo Vasquez Carlene [id number] Adolfo Concepcion Jr Notes Date Note Type Note Provider Name and Address Organization Details Recorded Time 07/03/2025 text/html ROS as noted in the HPI 85-year-old male presents for evaluation of excessive cerumen in both ears. He denies any ear pain, ear drainage, recent ear infections, Q-tip use, or hearing changes. His believes that his hearing has decreased. The patient has not had a hearing test in over 30 years. The patient has also not received a call to schedule his neck MRI, which was ordered by Dr. Prince due to findings of growths in the deeper parts of the parotid gland on CT angiogram and ultrasound obtained during a hospital stay. Robb Michael, DO 100 [facility] 100, [place], [address], [facility] - [facility] 07/03/2025 16:59:30
--- OUTSIDE RECORDS SUMMARY | 2025-08-08 10:24 | XMS_ITS | Patient Health Record ---
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
[2025-08-08 10:30] VITALS: BP 142/79; PULSE 66; RESP 16; TEMP 36.3; O2SAT 98; BMI 22.9
[2025-08-08 10:40] VITALS: BP 153/68
[2025-08-08 11:01] VITALS: BP 118/60
== END 2025-08-08 11:17 | disposition home or self-care (01) ==
LOC: HO.HMCFM 10:16
PROVIDERS: PCP Family Medicine; Visit Provider Nurse Practitioner Family
DX: Z00.00 Encounter for general adult medical examination without abnormal findings (principal); D69.6 Thrombocytopenia, unspecified; I45.2 Bifascicular block; I51.89 Other ill-defined heart diseases; I49.1 Atrial premature depolarization; D69.2 Other nonthrombocytopenic purpura; K11.8 Other diseases of salivary glands; Z23 Encounter for immunization; Z85.46 Personal history of malignant neoplasm of prostate; Z66 Do not resuscitate

== ENCOUNTER → 2025-08-08 10:15 | Outpatient (BNVA) | payer MEDICARE, SELFPAY | PROVIDERS: PCP Family Medicine; Visit Provider Nurse Practitioner Family | DX: Z00.01 Encounter for general adult medical examination with abnormal findings (principal); I45.2 Bifascicular block; I49.1 Atrial premature depolarization; I51.89 Other ill-defined heart diseases; Z85.46 Personal history of malignant neoplasm of prostate; D69.6 Thrombocytopenia, unspecified; D69.2 Other nonthrombocytopenic purpura; K11.8 Other diseases of salivary glands; Z13.1 Encounter for screening for diabetes mellitus; Z12.5 Encounter for screening for malignant neoplasm of prostate; Z23 Encounter for immunization; Z71.89 Other specified counseling; Z71.85 Encounter for immunization safety counseling | CPT/HCPCS: 83036; 90471; 90656; 93005; 96127; 99212; 99497 ==